=== PATIENT | male | born 1970 | race Caucasian/White ===

== ENCOUNTER 2022-05-29 17:49 | Inpatient (IN) ==
[2022-05-29] MEDS ORDERED: MIDAZOLAM HCL 1 MG/ML 2ML VIAL ONE (17:59)
[2022-05-29] MEDS ORDERED: fentaNYL citrate 100 MCG/2 ML VIAL ONE (17:59)
[2022-05-29] MEDS ORDERED: niCARdipine HCL INJ 2.5 MG/ML 10 ML AMP ONE (17:59)
[2022-05-29] MEDS ORDERED: HEPARIN (PORCINE) 1000 UNIT/ML 10 ML (CATH LAB USE ONLY) ONE (18:00)
[2022-05-29] MEDS ORDERED: TICAGRELOR 90 MG TAB ONE (18:01)
[2022-05-29] MEDS ORDERED: NITROGLYCERIN/D5W 100MCG/ML 20ML SYR ONE (18:03)
--- NOTE | 2022-05-29 18:10 | Emergency Department Note ---
Impression & Plan STEMI (ST elevation myocardial infarction), Chest pain ED Provider Note NAME: EMANUEL ARGUETA AGE: 51 SEX: M : 1970 ARRIVES VIA: Ambulance INFORMANT: Patient, EMS ED PROVIDER(S): Carlos Shrestha DO CHIEF COMPLAINT: Chest pain HPI: The patient is a 51-year-old male who presented to the emergency department for an evaluation of chest pain. The patient started having chest pain while he was doing a cardiac workout prior to arrival. He started noticing chest pain as well as numbness in both arms. He describes this as a tingling. The chest pain he described as a pressure. There was no back pain. He denies having any vomiting or shortness of breath. He is never had similar symptoms in the past. He does have a history of hypertension and a family history of coronary artery disease. He also uses tobacco products. He was noted to have an abnormal EKG prior to arrival. The EMS personnel called ahead to alert us about the abnormal EKG. The patient was treated with aspirin and fentanyl prior to arrival. He states his pain is significantly improved. ROS: See above HPI for pertinent positives & negatives. A total of 10 systems reviewed and were otherwise negative. PAST MEDICAL HISTORY: See Below PAST SURGICAL HISTORY: See Below FAMILY HISTORY: See Below SOCIAL HISTORY: See Below HOME MEDICATIONS: See Below ALLERGIES: See Below VITALS: See Below PHYSICAL EXAMINATION: GENERAL: Patient is awake alert in no acute distress patient is resting comfortably and showing no signs of anxiety EYES: The conjunctivae are clear. The pupils are round and reactive. EARS, NOSE, MOUTH AND THROAT: The nose is without any evidence of any deformity. NECK: The neck is nontender and supple. RESPIRATORY: Normal respiratory effort is noted there is no evidence of wheezing rhonchi or rales CARDIOVASCULAR: Regular rate and rhythm noted there no murmurs rubs or gallops normal S1 normal S2. GASTROINTESTINAL: The abdomen is soft. Abdomen is nontender. MUSCULOSKELETAL/EXTREMITIES: There is no evidence of gross deformity full range of motion is noted in the hips and shoulders. SKIN: There is no obvious evidence of any rash. Pulses are symmetric in both wrists. NEUROLOGIC: Patient is awake alert and oriented x3. MEDICAL DECISION MAKING: The patient is a 51-year-old male who presented to the emergency department for an evaluation of chest discomfort. The chest discomfort began with exertion. The patient called 911. The patient was treated with aspirin nitroglycerin and fentanyl prior to arrival. He was pain-free upon arrival but continued to have ST segment abnormalities consistent with an inferior posterior wall MN. The patient was made a heart alert prior to arrival. He was evaluated in the emergency department by the manager pest. After his evaluation he did request Brilinta be given. I discussed the patient's laboratory and EKG findings with him. He was aware that he was having an acute MN and was agreeable to evaluation by the manager pest for possible cardiac catheterization. The patient was agreeable. He was taken to the cardiac Prosthetics Technician. He remained stable in the emergency department. Triage Nursing notes reviewed. Prior medical records reviewed Vital Signs: reviewed and remarkable for no significant abnormalities Differential diagnosis: Cardiac ischemia, aortic dissection, pulmonary embolism, pneumothorax, pneumonia, pericarditis, myocarditis, esophageal rupture, GERD, cholecystitis, pancreatitis, musculoskeletal, as well as other pathologies. ER treatment provided: See below Diagnostics interpreted by me: ECG: EKG was obtained in the emergency department. My interpretation is normal sinus rhythm at 60 bpm. There is no ectopy. Inferior ST segment elevation was noted with high lateral and anterior reciprocal changes. No previous tracing was available. Tracing appears to be consistent with an inferior and posterior wall myocardial infarction. Prehospital EKG was reviewed. My interpretation is normal sinus rhythm at 62 bpm. There is no ectopy. High lateral ST depressions were noted with hyperacute T waves in the inferior leads. This is consistent with acute ischemia. Cardiac Monitoring: An order was placed for continuous cardiac monitoring. The monitor shows a rate of 63 bpm with sinus rhythm. Laboratory studies: As stated above and show below. Imaging studies: See below. Radiographic imaging was reviewed by myself Consultation(s): Heart alert was called prior to arrival. Dr. Foy arrived at the bedside. He asked for Brilinta to be given. ED COURSE: Procedures: none Critical Care: I have personally spent greater than 35 minutes of critical care time in the direct management of this patient. This includes bedside care, interpretation of diagnostic studies, and testing, discussion with consultants, patient, and family members, and other required patient management activities. This 35 minutes is in excess of all separately billable procedures. Past Med/Surg History Medical History Hypertension Seasonal allergies Surgical History No significant past surgical history Family History Mother Diabetes Dyslipidemia Heart disease Hypertension Aunt Heart disease Hypertension Social History Smoking Status: Current some day smoker Tobacco Type: Cigarettes Preferred Language: Kosovan marital status: current occupational status: employed Feels Safe at Home: Yes Allergies Allergies Allergy/AdvReac Type Severity Reaction Status Date / Time No Known Allergies Allergy Unverified 05/29/22 18:04 Home Meds Home Medications Medication Instructions Recorded Confirmed lisinopril 10 1 tab PO DAILY 05/29/22 05/29/22 mg-hydrochlorothiazide 12.5 mg tablet Results & Data (ED) Vital Signs Vital Signs - 24 hr 05/29/22 17:50 05/29/22 17:50 Temperature 36.3 C L Temperature Source Oral Pulse Rate 78 Pulse Rhythm Regular Pulse Strength Normal Respiratory Rate 18 Respiratory Effort / Characteristics Non-Labored Spontaneous Respiratory Depth Normal Respiratory Pattern Regular Blood Pressure 116/81 Blood Pressure Mean 92 Blood Pressure Position Lying Pulse Oximetry 96 95 Oxygen Delivery Method Room Air Room Air Sepsis Recent Fever Within 48 Hours No Sepsis New/Unexplained Change in Mental Status No Sepsis Action Taken by Nursing No Action Required Home Medications Current Medication List: was personally reviewed by me Laboratory Data Attestation: I reviewed the patient's lab results. 05/29/22 20:26 05/29/22 17:56 Lab Results 05/29/22 05/29/22 05/29/22 Range/Units 17:56 17:56 17:56 WBC 8.06 (4.8-10.8) K/ul RBC 4.08 L (4.63-6.08) M/uL Hgb 13.9 L (14.0-18.0) g/dl Hct 38.8 L (40.1-51.0) % MCV 95.1 (80.0-100.0) fL MCH 34.1 H (25.0-34.0) pg MCHC 35.8 (32.0-36.0) g/dL RDW Std Deviation 43.3 (36.4-46.3) fL RDW Coeff of Tree 12.4 (11.5-14.5) % Plt Count 249 (130-400) K/uL MPV 9.8 (9.4-12.4) fL Immature Gran % (Auto) 0.7 % Neut % (Auto) 50.3 % Lymph % (Auto) 37.1 % [place] % (Auto) 8.8 % Eos % (Auto) 2.6 % Baso % (Auto) 0.5 % Neut # (Auto) 4.05 (1.4-6.5) K/uL Lymph # (Auto) 2.99 (1.2-3.4) K/uL [place] # (Auto) 0.71 (0.24-0.82) K/uL Eos # (Auto) 0.21 (0-0.50) K/uL Baso # (Auto) 0.04 (0-0.2) K/uL Immature Gran # (Auto) 0.06 H (0.00-0.02) K/uL PT Cancelled INR Cancelled APTT Cancelled PTT Ratio Cancelled Activ Coag Time Kaolin (94-140) SECONDS Sodium 131 L (136-145) mmol/L Potassium 3.6 (3.5-5.1) mmol/L Chloride 96 L (98-107) mmol/L Carbon Dioxide 25 (21-32) mmol/L Anion Gap 10 (3-11) BUN 15 (6-23) mg/dl Creatinine 1.10 (0.6-1.4) mg/dl Est Cr Clr Drug Dosing 79.6 ml/min Est GFR ( Amer) 89.0 ml/min Est GFR (Non-Af Amer) 76.8 ml/min BUN/Creatinine Ratio 13.6 (10-20) Glucose 141 H (70-99(Fasting)) mg/dl Calcium 9.1 (8.5-10.1) mg/dl Total Bilirubin 0.6 (0.2-1.0) mg/dl AST 26 (13-39) U/L ALT 30 (7-52) U/L Alkaline Phosphatase 39 (34-104) U/L Troponin I High Sens 28.0 H (0-20) pg/ml Total Protein 6.8 (6.0-8.3) gm/dl Albumin 4.3 (3.4-5.0) gm/dl Globulin 2.5 (2.5-4.0) gm/dl Albumin/Globulin Ratio 1.7 (0.9-2) Lipase 13 (11-82) U/L 05/29/22 05/29/22 05/29/22 Range/Units 18:33 18:58 19:29 WBC (4.8-10.8) K/ul RBC (4.63-6.08) M/uL Hgb (14.0-18.0) g/dl Hct (40.1-51.0) % MCV (80.0-100.0) fL MCH (25.0-34.0) pg MCHC (32.0-36.0) g/dL RDW Std Deviation (36.4-46.3) fL RDW Coeff of Tree (11.5-14.5) % Plt Count (130-400) K/uL MPV (9.4-12.4) fL Immature Gran % (Auto) % Neut % (Auto) % Lymph % (Auto) % [place] % (Auto) % Eos % (Auto) % Baso % (Auto) % Neut # (Auto) (1.4-6.5) K/uL Lymph # (Auto) (1.2-3.4) K/uL [place] # (Auto) (0.24-0.82) K/uL Eos # (Auto) (0-0.50) K/uL Baso # (Auto) (0-0.2) K/uL Immature Gran # (Auto) (0.00-0.02) K/uL PT INR APTT PTT Ratio Activ Coag Time Kaolin 233 H 323 H 203 H (94-140) SECONDS Sodium (136-145) mmol/L Potassium (3.5-5.1) mmol/L Chloride (98-107) mmol/L Carbon Dioxide (21-32) mmol/L Anion Gap (3-11) BUN (6-23) mg/dl Creatinine (0.6-1.4) mg/dl Est Cr Clr Drug Dosing ml/min Est GFR ( Amer) ml/min Est GFR (Non-Af Amer) ml/min BUN/Creatinine Ratio (10-20) Glucose (70-99(Fasting)) mg/dl Calcium (8.5-10.1) mg/dl Total Bilirubin (0.2-1.0) mg/dl AST (13-39) U/L ALT (7-52) U/L Alkaline Phosphatase (34-104) U/L Troponin I High Sens (0-20) pg/ml Total Protein (6.0-8.3) gm/dl Albumin (3.4-5.0) gm/dl Globulin (2.5-4.0) gm/dl Albumin/Globulin Ratio (0.9-2) Lipase (11-82) U/L Administered Medications Atorvastatin Calcium (Atorvastatin 40 Mg Tab) 40 mg PO QAM [facility] Stop: 06/28/22 19:44 Last Admin: 05/29/22 21:08 Dose: 40 mg Documented By: BENNIE Sodium Chloride (Nss 1000ml) 1,000 mls @ 100 mls/hr IV .Q10H [facility] Stop: 06/28/22 19:44 Last Admin: 05/29/22 21:07 Dose: 100 mls/hr Documented By: BENNIE Metoprolol Tartrate (Metoprolol Tartrate 25 Mg Tab) 25 mg PO BID [facility] Stop: 06/28/22 20:59 Last Admin: 05/29/22 21:07 Dose: 25 mg Documented By: BENNIE Miscellaneous (Icu Protocol For Hyperglycemia) 1 each N/A ACHS [facility] Stop: 05/31/22 20:59 Last Admin: 05/29/22 21:46 Dose: 1 each Documented By: BENNIE Discontinued Medications Diphenhydramine HCl (Diphenhydramine 50 Mg/Ml Vial) Confirm Administered Dose 50 mg .ROUTE .STK-MED ONE Stop: 05/29/22 18:22 Last Admin: 05/29/22 21:08 Dose: Not Given Documented By: BENNIE Fentanyl Citrate (Fentanyl Citrate 100 Mcg/2 Ml Vial) Confirm Administered Dose 100 mcg .ROUTE .STK-MED ONE Stop: 05/29/22 18:00 Last Admin: 05/29/22 21:10 Dose: Not Given Documented By: BENNIE Heparin Sodium (Porcine) (Heparin (Porcine) 1000 Unit/Ml 10 Ml (Prosthetics Technician Use Only)) Confirm Administered Dose 10,000 units .ROUTE .STK-MED ONE Stop: 05/29/22 18:01 Last Admin: 05/29/22 21:09 Dose: Not Given Documented By: JT Heparin Sodium/Sodium Chloride (Heparin In Nss Infusion 1000 Unit/500 Ml (2 U/Ml) Bag) Confirm Administered Dose 3,000 units IV .Bringg-MED ONE Stop: 05/29/22 18:01 Last Admin: 05/29/22 21:09 Dose: Not Given Documented By: JT Midazolam HCl (Midazolam Hcl 1 Mg/Ml 2ml Vial) Confirm Administered Dose 2 mg .ROUTE .[employer] ONE Stop: 05/29/22 18:00 Last Admin: 05/29/22 21:09 Dose: Not Given Documented By: BENNIE Nicardipine HCl (Nicardipine Hcl Inj 2.5 Mg/Ml 10 Ml Amp) Confirm Administered Dose 25 mg .ROUTE .[employer] ONE Stop: 05/29/22 18:00 Last Admin: 05/29/22 21:09 Dose: Not Given Documented By: BENNIE Nitroglycerin/Dextrose (Nitroglycerin/D5w 100mcg/Ml 20ml Syr) Confirm A dministered Dose 2,000 mcg .ROUTE .[employer] ONE Stop: 05/29/22 18:04 Last Admin: 05/29/22 21:08 Dose: Not Given Documented By: BENNIE Ticagrelor (Ticagrelor 90 Mg Tab) Confirm Administered Dose 90 mg .ROUTE .[employer] ONE Stop: 05/29/22 18:02 Last Admin: 05/29/22 18:03 Dose: 90 mg Documented By: DOMINGA Discharge Plan Visit Data Chief Complaint: Heart Alert ED Provider: Carlos Shrestha Discharge Problem: STEMI (ST elevation myocardial infarction), Chest pain Patient Disposition: Admitted As Inpatient Discharge Instructions Interventions: ED Discharge Assessment Last Done: 05/29/22 20:51 : STEMI (ST elevation myocardial infarction) Qualifiers: Involved coronary artery: unspecified coronary artery Qualified Code(s): I21.3 - ST elevation (STEMI) myocardial infarction of unspecified site Chest pain Qualifiers: Chest pain type: chest pain due to myocardial ischemia Ischemic chest pain type: unspecified angina pectoris type Qualified Code(s): I25.9 - Chronic ischemic heart disease, unspecified
[2022-05-29 18:19] LABS: Basophils # (auto) 0.04 K/uL (0-0.2); Basophils % (auto) 0.5 %; Eosinophils # (auto) 0.21 K/uL (0-0.50); Eosinophils % (auto) 2.6 %; Hematocrit (blood only) 38.8 % (40.1-51.0); Hemoglobin 13.9 g/dl (14.0-18.0); Immature Granulocytes # (auto) 0.06 K/uL (0.00-0.02); Immature Granulocytes % (auto) 0.7 %; Lymphocytes # (auto) 2.99 K/uL (1.2-3.4); Lymphocytes % (auto) 37.1 %; Mean Corpuscular Hemoglobin 34.1 pg (25.0-34.0); Mean Corpuscular Hgb Conc 35.8 g/dL (32.0-36.0); Mean Corpuscular Volume 95.1 fL (80.0-100.0); Mean Platelet Volume 9.8 fL (9.4-12.4); Monocytes # (auto) 0.71 K/uL (0.24-0.82); Monocytes % (auto) 8.8 %; Neutrophils # (auto) 4.05 K/uL (1.4-6.5); Neutrophils % (auto) 50.3 %; Platelet Count 249 K/uL (130-400); RDW Coefficient of Variation 12.4 % (11.5-14.5); RDW Standard Deviation 43.3 fL (36.4-46.3); Red Blood Count 4.08 M/uL (4.63-6.08); White Blood Count 8.06 K/ul (4.8-10.8)
[2022-05-29] MEDS ORDERED: diphenhydrAMINE 50 MG/ML VIAL ONE (18:21)
[2022-05-29] MEDS ORDERED: ONDANSETRON INJ 2 MG/ML 2 ML VIAL IV PRN (19:39)
[2022-05-29] MEDS ORDERED: ATROPINE SULFATE 0.1 MG/ML 10ML SYR IV PRN (19:39)
[2022-05-29] MEDS ORDERED: NITROGLYCERIN SL 0.4 MG/TAB TAB SL PRN (19:39)
--- NOTE | 2022-05-29 19:53 | Pre Anesthesia Assessment ---
Date of Service May 29, 2022 Pre Sedation Assessment Vital Signs Temp Pulse Resp BP Pulse Ox O2 Del Method 05/29/22 17:50 95 Room Air 05/29/22 17:50 36.3 C L 78 18 116/81 96 Room Air Cardiovascular RRR, no murmur, no edema Respiratory normal respiratory effort, lungs clear to auscultation Pre-Sedation Airway Assessment Smoking Status: Current some day smoker Mallampati II ASA IV Notes The planned sedation has been discussed with the patient. Informed Consent was obtained. I have identified the patient, determined the appropriateness of sedation and have assessed the patient immediately prior to the procedure. All medicine(s) and interventions are by my order.
--- NOTE | 2022-05-29 19:55 | Post Anesthesia Assessment ---
Date of Service May 29, 2022 Post Sedation Assessment Vital Signs Temp Pulse Resp BP Pulse Ox O2 Del Method 05/29/22 17:50 95 Room Air 05/29/22 17:50 36.3 C L 78 18 116/81 96 Room Air Recovery Score Activity: Moves 4 extremities Respiration: Deep Breath/Cough Circulation: +/-20% PreAnes Value Consciousness: Fully Awake Oxygen Saturation: > 92% On Room Air Discharge Sedation Level of Care: Phase I Post Sedation Plan On clinical assessment, the patient appears to have tolerated the sedation without complications. Patient is recovering as anticipated. Patient will continue to be monitored by nursing and may be discharged when sedation discharge criteria are met per below protocol. Upon Completions of procedure up to 15 minutes continue every 5 minute vital signs and the P.A.R. score; then discharge to a Phase I or Fast Track to Phase II per the following guidelines: * Discharge Patient to appropriate Phase II area if PAR is 8 or greater or return to pre- procedure baseline. The post - procedure orders will be as directed. * If PAR score is less than 8 or not return to pre-procedure baseline then patient will follow Phase I monitoring till PAR is reached for Phase II. The Phase I may be done in procedure room or may call to secure a Phase I area. * If naloxone or flumazenil are used for reversal, hold in Phase I for continued monitoring from when last reversal dose was given for a minimum of 60 minutes or longer pending the nurse and/or physician discretion of patient condition before discharge to Phase II. Please call the Sedation Physician to re-evaluate and complete post-note for discharge to Phase II area. Do NOT discharge from procedure sedation or Phase 1 until post- sedation evaluation note is complete by procedure /sedation MD Sedation Discharge Instructions to be given to the patient at discharge to home. [facility] Procedure Codes (Charges) Indication for Procedure Indication for procedure: STEMI Sedation/Anesthesia Procedure 1: Sedation/Anesthesia: 62432 Mod Sedation by the same physician;Init15 Min Child Age 5 & Up (initial 15 min) Total Sedation Time (minutes): 71 Procedure 2: Sedation/Anesthesia: 77592 Mod Sedation by the same physician; Ea [id number] Minutes (additional 56 min) Total Sedation Time (minutes): 71
[2022-05-29 19:57] LABS: Albumin Level 4.3 gm/dl (3.4-5.0); Bilirubin,Total 0.6 mg/dl (0.2-1.0); Calcium 9.1 mg/dl (8.5-10.1); Potassium 3.6 mmol/L (3.5-5.1)
[2022-05-29 20:04] LABS: Albumin Globulin Ratio 1.7 (0.9-2); BUN Creatinine Ratio 13.6 (10-20); Creatinine Clr Calc Pharmacy 79.6 ml/min; Est GFR (Non-African American) 76.8 ml/min; Globulin 2.5 gm/dl (2.5-4.0); Total Protein 6.8 gm/dl (6.0-8.3)
--- NOTE | 2022-05-29 20:08 | Cardiac Catheterization ---
ACC Data: [facility] [employer] Cardiac Status Clinical evaluation leading to the procedure CAD Presenation: STEMI Anginal Classification: CCS IV Heart Failure: No Cardiogenic Shock within 24 Hours: No Cardiac Arrest within 24 Hours: No Imaging Studies Past 6 Months: No Stress Studies Past 6 Months: No STEMI OR Non-STEMI Symptom Onset Date: 05/29/22 Symptom Onset Time: 17:00 Thrombolytics: No Coronary Anatomy Dominant: Right Left Main (% Stenosis): Normal LAD (% Stenosis): Ostial (90%) and Mid (70%) D1 (% Stenosis): Ostial (99%) Circumflex (% Stenosis): Distal (100%) OM1 (% Stenosis): Normal (Mild diffuse) OM2 (% Stenosis): Proximal (70%) RCA (% Stenosis): Proximal (100%) Diagnostic Physicians Name: Ady Foy MD, PhD Closure Device Percutaneous Entry Location: Radial Closure Device: Radial Band Recommendations: Medical Therapy and/or Counseling and PCI without planned CABG PCI Indication: PCI for STEMI - Stable First Noted: First EKG Lesion Segment Name: Proximal to mid RCA Culprit Artery: Yes Stenosis Prior to Rx (%): 100% Chronic Total Occlusion: No Pre-Procedure JONH Flow: 0 Previously Treated Lesion: No Lesion Complexity: High/C Lesion Length (mm): 34 Thrombus Present: Yes Bifurcation Lesion: No Guidewire Across Lesion: Yes Intraprocedure Events Significant Disection: No Perforation: No Cardiac Cath Procedure Full Procedure Date May 29, 2022 Pre-Procedure Diagnosis Pre-Procedure Diagnosis: STEMI AUC Score AUC Score: 09 Post-Procedure Diagnosis Post-Procedure Diagnosis: Severe CAD Procedure(s) Performed Procedure(s) Performed: Coronary Angiography and Drug Eluting Stent Enterprise Business [employer] Ady Foy MD, PhD Estimated Blood Loss Estimated Blood Loss: 10 ml Medication(s) Medication(s): Diphenhydramine, Fentanyl, Heparin, Lidocaine 1%, Nicardipine, Nitroglycerin and Versed Summary of Findings Brief description: Patient was brought to the cardiac catheterization suite where he was shaved and prepped in a sterile fashion. Sedated using IV Versed, fentanyl, and Benadryl. Soft tissues of the right wrist were anesthetized using 2 mL of 1% Xylocaine. Right radial artery was accessed with modified Seldinger technique and a 6 Palestinian radial artery glide sheath was placed. Patient was provided anticoagulation with IV heparin and antispasmodics including nicardipine and nitroglycerin. All catheters were advanced and exchanged over a 0.035 J-tip wire. Patient arrived to the [facility] having already been loaded with 180 mg of Brilinta and 325 mg of aspirin. Left and right coronary angiography were performed in orthogonal views with a 5 [place] 4 diagnostic catheter Diagnostic catheters were removed. We next moved for intervention. ACT was checked and patient was provided additional heparin as needed throughout the procedure to maintain therapeutic ACT. A 6 Palestinian JR4 guide catheter was used to engage the right coronary. A CognioW versa guidewire was advanced and positioned distally in the RCA. Lesion was predilated multiple times with a 2.0 x 12 mm mini trek balloon up to 14 lencho. The most distal portion of the lesion was predilated using a 2.0 x 8 mm mini trek balloon secondary to curvature and calcification in that area. The diseased segment was again predilated this time using a 2.5 x 12 mm trek balloon up to nominal inflation multiple times. A guide liner was advanced over the guidewire and the 2.5 x 12 mm trek balloon was then able to be passed around the curved and calcified segment. The lesion was predilated. The balloon was then pulled back sequentially to predilate in the diseased segment multiple times at 14 lencho. The balloon was removed and angiography was performed. There was severe residual stenosis just prior to the curved segment which was refractory to the regular PTCA balloons. Therefore, a 2.5 x 12 mm NC balloon was advanced and positioned across that lesion. It was then dilated up to nominal pressure. The noncompliant balloon was removed. A 2.5 x 12 mm [place] drug-eluting stent was advanced with the help of the guide liner was delivered around the curved segment where it was then deployed at 14 lencho. The balloon was and it removed. A 2.5 x 26 mm [place] drug-eluting stent was then advanced over the guidewire and positioned with its distal edge within the proximal segment of the original stent and the stent then spanned the entire diseased segment of the proximal RCA. This was deployed initially at 14 lencho with a second inflation up to 18 lencho. Stent balloon was then removed. Coronary angiography was performed. A 3.5 x 15 mm noncompliant balloon was then advanced in the mid and proximal portion of the long stent was then postdilated to nominal pressure for a final diameter of 3.5 mm. The balloon was then deflated and removed. The guidewire and guide liner were next removed. Final angiographic evaluation was performed in orthogonal views. Guide catheter was removed. Radial sheath was then removed. Hemostasis was obtained using a TR band. Patient remained hemodynamically stable and asymptomatic. He was returned to the recovery area. Plan for admission to the ICU. This ended the case. Coronary angiography findings: LMT: Large-caliber vessel bifurcating into LAD and circumflex. Mild luminal irregularities. LAD: Large caliber vessel. Moderate to heavy calcification in the proximal to mid segment. There is an ostial 90% stenosis. Diffuse proximal disease with the mid having up to 70% stenosis. Distal vessel is smaller in caliber with diffuse mild disease as it reaches the apex. There is a large caliber first diagonal which has an ostial 99% stenosis and the vessel then branches and has mild disease. LCx: Large caliber and nondominant. Proximal segment with mild luminal irregularities. Mid segment is calcified and has mild luminal irregularities. After the second OM the AV groove vessel is 100% occluded. It fills the distal posterolateral branch and distal AV groove vessel via left to left collateralization. OM1 branch is medium with diffuse mild disease. The OM 2 branch is large with ostial to proximal 70% stenosis and then it branches distally. RCA: Large caliber and dominant. It is 100% occluded proximally. It is hazy in this occlusion appearing as thrombus and there is significant calcification and tortuosity throughout the proximal and mid vessel. JONH 0 flow is noted. PDA is a long and fills via left to right collateralization. PCI of RCA: There is 0% residual stenosis throughout the proximal and early mid vessel post PCI JONH-3 flow post PCI No evidence of dissection or perforation post PCI Beyond the distal edge of the mid RCA stent the mid and distal RCA have mild luminal irregularities. Then, just before the bifurcation into the PDA and posterior lateral branch there is a 80% stenosis. The mid PDA has a focal 50 to 70% stenosis but the vessel is relatively small. Summary: 1. Successful PCI of the RCA with implantation of 2 overlapping drug-eluting stents. 2. Severe multivessel coronary artery disease as described. 3. Patient will remain on dual antiplatelet therapy with aspirin and Brilinta 4. Initiate guideline directed medical therapy for secondary prevention of coronary disease including statin, beta-isabel, and HARDY inhibitor 5. We will consider future revascularization options given the severity of his multivessel coronary disease after he recovers from acute [place]. Hemodynamics Rest Ao:: 130/80 mmHg, mean 106 mmHg Final Ao: 149/81 mmHg, mean 111 mmHg LV: Not performed Recommendations Recommendations: Medical Therapy and/or Counseling and PCI without planned CABG Radiation Exposure (mGy) 3888 mGy, fluoroscopy time 19.1 minutes Contrast (mls) 160 mL Anesthesia 2 mg IV Versed, 50 mcg IV fentanyl, 25 mg IV Benadryl Procedural Complication(s) None I attest to the content of the Intraoperative Record and any orders documented therein. Any exceptions are noted below. [employer] Card Cath Procedure Codes Cardiac Catheterization Procedure 1: Cardiovascular Cath Procedures: 21332 Coronaries Moderate Sedation Procedure 1: Sedation/Anesthesia: 61781 Mod Sedation by the same physician;Init15 Min Child Age 5 & Up (Initial 15 minutes, total 71 minutes) Procedure 2: Sedation/Anesthesia: 47082 Mod Sedation by the same physician; Ea [id number] Minutes (Additional 56 minutes, total 71 minutes) Stenting Procedure 1: Cardiovascular Stent Procedures: 09197 Perc transluminal revascularization of acute sub/total occl, aMI (RCA) PG Care Time/CCT Total # of Minutes Spent Total Time Spent with Patient: Total time spent is greater than 50% in coordination of care (as documented) at patient's floor/unit and/or counseling patient:
--- NOTE | 2022-05-29 20:36 | Critical Care Consultation ---
Date of Consultation May 29, 2022 Assessment & Plan (1) STEMI (ST elevation myocardial infarction): (2) CAD (coronary artery disease): (3) S/P drug eluting coronary stent placement: (4) Smoker: Plan Reason Critically Ill: 51 YOM admitted for chest pain- found to be having STEMI and was taken directly to mobile home laborer for intervention. He received 2 JAZMYN to RCA and transitioned to ICU for following of symptoms and hemodynamics. Neuro - No acute needs, awake alert following sedation CAM ICU: Negative follow nuerological status Cardiac - STEMI, CAD, S/P Stenting to [place] arteries (RCA x2), HTN - Risk factors: HGBA1C- pending, lipid panel pending, Smoker- smoking cessation education, HTN - Patient post stents as above - continue to trend HScTNI - ECG improved following intervention - ECHO in morning - initiate BB, Statin, HARDY- already ordered per cards - Continue with ASA and Brilinta- already ordered per cards - Follow hemodynamics with imitation of HARDY and BB Respiratory - Every day smoker 1/2-3/4 pack per day - As above- cessation education and adjuncts as able GI - No acute needs - advance diet as tolerated RENAL/LYTES - Mild hyponatremia asymptomatic Replete intravascular volume- diet should correct - asymptomatic- likley related to not replacing volume/diet following working out this morning Follow renal function with initiation of HARDY Electrolytes per ICU protocol - No acute needs ENDO - Elevated random serum glucose without the diagnosis of diabetes - Lipid panel pending - HGBA1C pending - ICU hyperglycemic protocol goal <180mg/dl HEME - No acute needs ID - No acute needs LINES/IV ACCESS - PIV, TR Band Continue use of these lines DVT PROPHYLAXIS - SCDS, Asa, Brilinta, ambulation DISPO- ICU overnight I have personally spent 45 minutes of critical care time in the direct management of this patient. This is a life/limb threatening event. This includes time spent evaluating patient, direct bedside care, chart review, placing orders, interpretation of diagnostic studies, discussion with consultants, patient, and family members, as well as other required patient management activities. This time is exclusive of all separately billable procedures, and separate from and in addition to any other critical care service time. Thank you for allowing us to participate in the care of this patient. Please refer to my attending physician's documentation for any further recommendations. History of Present Illness Reason for Consultation: s/p PCI to RCA for STEMI Requesting Physician: Ady Garza MD Attending Physician: Bassam Nichole MD History of Present Illness 51 YOM [place] [facility] [place] of EMS for chest pain. Patient states he was doing a workout this morning and following jumping rope he noticed he was feeling "off". He then went upstairs, once upstairs he noted that he had onset of sternal chest pressure that was throbbing in nature and and 1-2/10. T his was associated with bilateral arm tingling down into his fingertips. He sat down and as this did not go away after 5 minutes he called 911. Patient arrived to [facility] and followig ECG and routine lab-work he was heart alerted and taken directly to the mobile home laborer. He received angioplasty following 2 JAZMYN to the RCA. He was loaded on Brilinta and asa and as needed heparin during the case for maintaining ACT levels. Patient arrived to the ICU awake alert, pain free and hemodynamically stable. The patient endorses family history of CAD, DMII, HTN. Mother and Aunts had [place] history. These occurred in their 70s. Mother this past year from complicatoins of heart failure and DMII and father was killed in his 40s in car accident. Patient has not had any other surgical procedures performed. He endorses that he works out at least 4-5 days per week with HIT workouts. He does endorse smoking 10-15 cigarrets per day, and social ETOH use. He reports no history of DTs when he does not drink. He does also endorse previous unfeeling well last week with head congestion, diarrhea, and myalgias that has resolved. Reports negative home COVID tests as negative. COVID test on arrival: NEGATIVE Allergies Allergy/AdvReac Type Severity Reaction Status Date / Time No Known Allergies Allergy Unverified 05/29/22 18:04 Home Medications Medication Instructions Recorded Confirmed Type lisinopril 10 1 tab PO DAILY 05/29/22 05/29/22 History mg-hydrochlorothiazide 12.5 mg tablet Patient History Medical History (Updated 05/29/22 @ 20:27 by VERA Graham) Hypertension Seasonal allergies Surgical History (Updated 05/29/22 @ 20:27 by VERA Graham) No significant past surgical history Family History (Updated 05/29/22 @ 20:23 by VERA Graham) Mother Diabetes Dyslipidemia Heart disease Hypertension Aunt Heart disease Hypertension Social History Smoking Status: Current some day smoker Tobacco Type: Cigarettes Preferred Language: Northern Irish marital status: current occupational status: employed Feels Safe at Home: Yes Review of Systems Review of Systems: REVIEW OF SYSTEMS: Constitutional: No fever, sweats or chills Eyes: No diplopia, no worsening or blurred vision ENT: (+) wears glasses, normal hearing, no trouble swallowing Respiratory: No cough, sputum, dyspnea at rest or on exertion Cardiovascular: (+)chest pain, tightness - currently resolved, denies palpitations Abdomen: No pain, nausea, vomiting, diarrhea or constipation Musculoskeletal: No joint pain, calf pain, swelling Neurologic: No weakness, numbness/tingling, or balance problems Psychiatric: No anxiety or depression Skin: No rash or itch Physical Exam Physical Exam: PHYSICAL EXAM: General: awake, alert, no apparent distress Head: Normocephalic, atraumatic ENT: PERRLA, EOMI, no pharyngeal exudate, mucous membranes dry Neuro: AAO x 3, speech clear and appropriate, strength intact bilaterally 5/5, sensation intact and equal all extremities and dermatomes, no pronator drift Chest: equal rise and fall of the chest, no accessory muscle use, no heaves or thirlls, Clear to auscultation, on room air, Cardiac: Regular rate and rhythm, telemetry reviewed- NSR, skin warm dry, cap refill <3 seconds, peripheral pusles +2 no JVD, no murmur, no edema, right radial TR band in place- sensation intact fingers and hand GI: NABS x 4 quadrants, soft, nontender to palpation, no rebound, guarding or tenderness : Spontaneously voiding, no pain, no CVA tenderness, Extremities: Normal inspection, no peripheral edema or erythema, calfs no ntender to palpation Psych: Normal mood and affect Skin: no rash or erythema Results & Data Results & Data ([facility]) Vital Signs (Past 12 Hours) Vital Signs Temp Pulse Resp BP Pulse Ox O2 Del Method 05/29/22 17:50 95 Room Air 05/29/22 17:50 36.3 C L 78 18 116/81 96 Room Air Laboratory Results Abnormal lab results 05/29/22 05/29/22 05/29/22 Range/Units 17:56 17:56 18:33 RBC 4.08 L (4.63-6.08) M/uL Hgb 13.9 L (14.0-18.0) g/dl Hct 38.8 L (40.1-51.0) % MCH 34.1 H (25.0-34.0) pg Immature Gran # (Auto) 0.06 H (0.00-0.02) K/uL Activ Coag Time Kaolin 233 H (94-140) SECONDS Sodium 131 L (136-145) mmol/L Chloride 96 L (98-107) mmol/L Glucose 141 H (70-99(Fasting)) mg/dl 05/29/22 05/29/22 Range/Units 18:58 19:29 RBC (4.63-6.08) M/uL Hgb (14.0-18.0) g/dl Hct (40.1-51.0) % MCH (25.0-34.0) pg Immature Gran # (Auto) (0.00-0.02) K/uL Activ Coag Time Kaolin 323 H 203 H (94-140) SECONDS Sodium (136-145) mmol/L Chloride (98-107) mmol/L Glucose (70-99(Fasting)) mg/dl Medications Administered Home Medications lisinopril 10 mg-hydrochlorothiazide 12.5 mg tablet 1 tab PO DAILY 05/29/22 [History Confirmed 05/29/22] Active Medications Aspirin (Aspirin 81 Mg Ectab) [facility] [place]: 06/29/22 08:59 Atorvastatin Calcium (Atorvastatin 40 Mg Tab) 40 mg [facility] Stop: 06/28/22 19:44 Atropine Sulfate (Atropine Sulfate 0.1 Mg/Ml 10ml Syr) 0.5 mg IV UD PRN PRN Reason: bradycardia/hypotension Stop: 06/28/22 19:38 Sodium Chloride (Nss 1000ml) 1,000 mls @ 100 mls/hr IV .Q10H DAWIT Stop: 06/28/22 19:44 Lisinopril (Lisinopril 10 Mg Tab) 10 mg [facility] Stop: 06/29/22 08:59 Metoprolol Tartrate (Metoprolol Tartrate 25 Mg Tab) 25 mg PO BID [facility] Stop: 06/28/22 20:59 Miscellaneous (Icu Protocol For Hyperglycemia) 1 each N/A ACHS [facility] Stop: 05/31/22 20:59 Nitroglycerin (Nitroglycerin Sl 0.4 Mg/Tab Tab) 0.4 mg SL UD PRN PRN Reason: Chest Pain Stop: 06/28/22 19:38 Ondansetron HCl (Ondansetron Inj 2 Mg/Ml 2 Ml Vial) 4 mg IV Q6H PRN PRN Reason: Nausea And Vomiting Stop: 06/28/22 19:38 Ticagrelor (Ticagrelor 90 Mg Tab) 90 mg PO BID [facility] Stop: 06/29/22 08:59 ECG Additional Comments: 1954: NSR, ND 170 MS, QRS 104, QTc 398- resolved ST elevations 29-MAY-2022 17:51:10 Normal sinus rhythm Inferior infarct , possibly acute ACUTE [place] / STEMI Consider right ventricular involvement in acute inferior infarct Abnormal ECG No previous ECGs available Coding Level of Care Code Critical Care 1st 30-74 mins Diagnoses STEMI (ST elevation myocardial infarction) I21.3 CAD (coronary artery disease) I25.10 S/P drug eluting coronary stent placement Z95.5 Smoker F17.200
[2022-05-29 20:37] LABS: Basophils # (auto) 0.03 K/uL (0-0.2); Basophils % (auto) 0.3 %; Eosinophils # (auto) 0.07 K/uL (0-0.50); Eosinophils % (auto) 0.7 %; Hematocrit (blood only) 38.9 % (40.1-51.0); Hemoglobin 14.2 g/dl (14.0-18.0); Immature Granulocytes # (auto) 0.06 K/uL (0.00-0.02); Immature Granulocytes % (auto) 0.6 %; Lymphocytes # (auto) 1.62 K/uL (1.2-3.4); Lymphocytes % (auto) 15.1 %; Mean Corpuscular Hemoglobin 34.3 pg (25.0-34.0); Mean Corpuscular Hgb Conc 36.5 g/dL (32.0-36.0); Mean Platelet Volume 9.8 fL (9.4-12.4); Monocytes # (auto) 0.55 K/uL (0.24-0.82); Monocytes % (auto) 5.1 %; Neutrophils # (auto) 8.43 K/uL (1.4-6.5); Neutrophils % (auto) 78.2 %; Platelet Count 215 K/uL (130-400); RDW Coefficient of Variation 12.3 % (11.5-14.5); RDW Standard Deviation 42.5 fL (36.4-46.3); Red Blood Count 4.14 M/uL (4.63-6.08); White Blood Count 10.76 K/ul (4.8-10.8)
--- NOTE | 2022-05-29 20:50 | Cardiology Consultation ---
Date of Consultation May 29, 2022 Assessment & Plan (1) STEMI (ST elevation myocardial infarction): Patient underwent emergent PCI to the RCA with implantation of 2 overlapping drug-eluting stents. He has good post PCI angiographic results and return of JONH-3 flow in the occluded vessel. He has severe multivessel coronary disease residually on the left coronary system. He will remain on dual antiplatelet therapy for at least 1 to 2 years. Currently aspirin 81 mg daily and Brilinta 90 mg p.o. twice daily. He was already on lisinopril which will continue. In addition, guideline directed medical therapy will include beta-isabel and high intensity statin therapy. He should have an echocardiogram to evaluate his EF post TX. This will have significant implications for additional treatment if necessary. Complete revascularization will be considered at a later date and include the possibility of coronary artery bypass grafting versus staged multivessel PCI. (2) Hypertension: Patient will remain on lisinopril. Adding metoprolol tartrate 25 mg p.o. twice daily. We will see how he does with these medications and titrate as necessary to achieve target systolic blood pressure. (3) Atherogenic dyslipidemia: Patient is considered high risk. He will be on high intensity statin therapy. We initiated a atorvastatin 40 mg daily. A fasting lipid panel has been ordered and under current guidelines are target LDL reduction will be greater than or equal to 50% of untreated baseline LDL. (4) Smoker: Tobacco cessation counseling. Additionally, pharmacologic help with Wellbutrin and/or NicoDerm patches. Plan Given acute TX patient will remain hospitalized in the ICU for 24 hours. Assuming no complications he will be ready for stepdown at that point and his to raheem hospitalization time will be 48-72 hours. History of Present Illness Reason for Consultation: Acute ST elevation TX Attending Physician: Bassam Nichole MD History of Present Illness 51-year-old hypertensive male smoker without cardiac history was exercising at home and developed sudden onset severe chest pain. He has a strong family history of coronary disease and decided to seek medical attention. EMS was pita led and he was provided aspirin and fentanyl in route. EKG demonstrated inferior ST elevations. A heart alert was called and on my arrival he continued with improved but ongoing chest discomfort. His EKG continued to demonstrate inferior ST elevations. After obtaining informed consent the patient was taken emergently to the cardiac catheterization suite where he underwent diagnostic coronary angiography followed by PCI with implantation of 2 overlapped drug- eluting stents in the RCA. This resulted in resolution of his EKG changes and chest discomfort. He was hemodynamically stable and is now admitted to the intensive care unit for further work-up and management. Patient denies anginal symptoms preceding today's event. He exercises regularly and had no problems prior to today. He does smoke but this has not impaired him significantly. He denies any shortness of breath, syncope, near syncope, orthopnea, PND, racing heartbeat, palpitations, or edema. He states his mother had multivessel coronary disease and a coronary artery bypass grafting operation. Allergies Allergy/AdvReac Type Severity Reaction Status Date / Time No Known Allergies Allergy Unverified 05/29/22 18:04 Home Medications Medication Instructions Recorded Confirmed Type lisinopril 10 1 tab PO DAILY 05/29/22 05/29/22 History mg-hydrochlorothiazide 12.5 mg tablet Patient History Medical History Hypertension Seasonal allergies Surgical History No significant past surgical history Family History Mother Diabetes Dyslipidemia Heart disease Hypertension Aunt Heart disease Hypertension Social History Smoking Status: Current some day smoker Tobacco Type: Cigarettes Preferred Language: Belarusian marital status: current occupational status: employed Feels Safe at Home: Yes Review of Systems Review of Systems: Negative x12 point review except as per HPI Physical Exam Constitutional: WD/WN, vitals as above Eyes: Sclera are anicteric. Extraocular muscles are intact. ENMT: Oral mucosa is pink, moist, and intact. Neck: No JVD or thyromegaly Respiratory: Clear to auscultation bilaterally. No wheezing, rhonchi, or rales. Cardiovascular: Regular rate and rhythm. S4 gallop. No rubs or murmurs appreciated. No edema. Pulses are 2+ and symmetric. Gastrointestinal (Abdomen): Normal active bowel sounds. Musculoskeletal: no cyanosis or clubbing, extremities motor strength 5/5 Neurologic: Cognition is intact. Speech is fluent. No focal deficits. No tremor. Psychiatric: A+Ox3, euthymic affect Results & Data ([facility]) Vital Signs (Past 12 Hours) Vital Signs Temp Pulse Resp BP Pulse Ox O2 Del Method 05/29/22 17:50 95 Room Air 05/29/22 17:50 36.3 C L 78 18 116/81 96 Room Air PG Care Time/CCT Total # of Minutes Spent Total Time Spent with Patient: Total time spent is greater than 50% in coordination of care (as documented) at patient's floor/unit and/or counseling patient: Critical Care Time: Yes Total Critical Care Time: 60 A total of 60 minutes critical care time was spent in the initial evaluation, examination, discussion of initial plan of care, formulation and implementation of a plan of care, and documentation of all of the above. This is exclusive of the time spent for his procedure. Coding Level of Care Code New Pt INP/OBS CONSULT LVL 4, 60 MIN Patient Type New Diagnoses STEMI (ST elevation myocardial infarction) I21.3 Hypertension I10 Atherogenic dyslipidemia E78.5 Smoker F17.200 Additional Codes Critical Care Time - Critical Care Time: Yes ([id number])
--- NOTE | 2022-05-29 21:01 | Hospitalist Consultation ---
Date of Consultation May 29, 2022 Assessment & Plan (1) STEMI (ST elevation myocardial infarction): -Patient currently stable in the ICU -Patient is S/P 2 JAZMYN to the RCA, also was noted to have significant atherosclerotic disease in the left coronary system -Continue to monitor on tele and pulse oximetry -Continue medical management as ordered by cardiology including HARDY, meta isabel, high intensity statin, aspirin, and Brilinta -Patient to receive TTE in the am for further assessment -Continue to stress smoking cessation, patient declined nicotine patch and gum at this time -Monitor trop q6h with repeat currently in process -AM CBC and BMP, follow up on A1C and lipid panel which are in process (2) Hypertension: -Stable -Continue HARDY and start metoprolol as ordered by cardiology -Hold HCTZ for now with his hyponatremia and recent cath, monitor am electrolytes and renal function (3) Hyponatremia: -Sodium noted to be 131 on initial labs obtained in the ED -Glucose noted to be 141 at that time -patient is asymptomatic, mild hyponatremia likely multifactorial including diuretic use, exercising prior to ED arrival and last meal being prior to arrival to the ED -Can start a heart healthy diet, Hold diuretics for now and monitor am renal function and electrolytes (4) Smoker: -Continue to stress smoking cessation -Patient declined nicotine patch at the time fo the consult Plan The patient was seen with and discussed with Dr. Esteves at the time of the consult History of Present Illness Reason for Consultation: Post-procedure medical management Requesting Physician: Dr. Ady Foy Attending Physician: Dr. Isabela Esteves History of Present Illness Holden is a 51 year old male with a PMH significant for HTN and current smoker who was brought to the ED this evening by EMS as a heart alert and taken directly to the lab associate. Per the procedural documentation the patient was found to be having STEMI. He received 2 JAZMYN to RCA and transitioned to ICU for following of symptoms and hemodynamics. At the time of the exam the patient was resting comfortably in bed in no acute distress after his procedure. He states that he is still smoking approximately 1/2-3/4 PPD and drinks beer socially. He states that his PCP follows yearly blood work to monitor for DM and high cholesterol and his labs have been stable. This morning he was doing a jump rope workout, he stated to feel "off" shortly after completing the workout. When questioned further he described a heaviness in the substernal region of his chest. He also noted BL upper extremity numbness/tingling. He clarified that the pain did not radiate from his chest to his BL UE's. He did take his Lisinopril/HCTZ this am. He states that he feels much better after the procedure, he does have some anxiety due to having to rest for a few days as he has been very busy with work. He denies current fever, chills, chest pain, SOB, abdominal pain, nausea, vomiting, diarrhea, dysuria, hematuria, and recent trauma. Since arriving to the ICU post-cath the patient has been afebrile, hemodynamically stable, and stable on RA. His initial labs were remarkable for A CBC WNL, stable Cr at 1.1, sodium of 131, otherwise stable electrolytes, glucose of 141, initial high sensitivity trop of 28, and covid negative. Please refer to Dr. Esteves's attestation for any changes to the treatment plan Allergies Allergy/AdvReac Type Severity Reaction Status Date / Time No Known Allergies Allergy Unverified 05/29/22 18:04 Home Medications Medication Instructions Recorded Confirmed Type lisinopril 10 1 tab PO DAILY 05/29/22 05/29/22 History mg-hydrochlorothiazide 12.5 mg tablet Patient History Medical History Hypertension Seasonal allergies Surgical History No significant past surgical history Family History Mother Diabetes Dyslipidemia Heart disease Hypertension Aunt Heart disease Hypertension Social History Smoking Status: Current every day smoker Tobacco Type: Cigarettes Second Hand Exposure: No; Do You Dip or Chew Tobacco: No; Tobacco Cessation Education Requested by Patient: Yes Hx Alcohol Use: Yes Alcohol type: beer Hx Substance Use: No Preferred Language: Romansh Communication Ability: Effective Mold Maker Required: No Beliefs That Will Affect Care: None marital status: Current Living Situation: Alone current occupational status: employed Other Information That Helps Us Care for You: No Feels Safe at Home: Yes Safety Concerns: Feels Safe At This Time Assistive Devices: None Review of Systems Review of Systems: Denies current fever, chills, headache, changes in vision, hearing, taste, and smell, chest pain, SOB, cough, abdominal pain, nausea, vomiting, diarrhea, hematemesis, melena, dysuria, hematuria, and recent falls. All systems have been reviewed and are otherwise negative. Physical Exam Physical Exam: Physical Exam: General: In no acute distress, stated age, well-nourished, good hygiene HEENT: Normocephalic, atraumatic, no scleral icterus, pupils around round, symmetrical, and reactive to light, moist mucus membranes, trachea midline, no thyromegaly Chest/Pulm: No respiratory distress, symmetrical chest expansion, clear breath sounds throughout Cardiac: RRR, no murmurs noted Abdomen: Negative for ascites and bruising, normoactive bowel sounds, soft, non-tender to palpation throughout Musculoskeletal: Patient with radial band in place, no signs of bleeding at the procedural insertion site, patient with intact sensation, motor function, and cap refill in the BL hands, ROM intact in the BL LE's Extremities: Radial, dorsalis pedis, and posterior tibial pulses are intact and symmetrical, no edema noted in the BL LE's Skin: Warm, dry, no rashes , lesions, or scars noted Neuro: Alert and oriented to person, place, month, year, and president, no focal defects, Psych: No acute distress, calm and cooperative during the exam Results & Data Results & Data ([facility]) Vital Signs (Past 12 Hours) Vital Signs Temp Pulse Resp BP Pulse Ox O2 Del Method 05/29/22 17:50 95 Room Air 05/29/22 17:50 36.3 C L 78 18 116/81 96 Room Air Laboratory Results Abnormal lab results 05/29/22 05/29/22 05/29/22 Range/Units 17:56 17:56 18:33 RBC 4.08 L (4.63-6.08) M/uL Hgb 13.9 L (14.0-18.0) g/dl Hct 38.8 L (40.1-51.0) % MCH 34.1 H (25.0-34.0) pg MCHC (32.0-36.0) g/dL Neut # (Auto) (1.4-6.5) K/uL Immature Gran # (Auto) 0.06 H (0.00-0.02) K/uL Activ Coag Time Kaolin 233 H (94-140) SECONDS Sodium 131 L (136-145) mmol/L Chloride 96 L (98-107) mmol/L Glucose 141 H (70-99(Fasting)) mg/dl Troponin I High Sens 28.0 H (0-20) pg/ml 05/29/22 05/29/22 05/29/22 Range/Units 18:58 19:29 20:26 RBC 4.14 L (4.63-6.08) M/uL Hgb (14.0-18.0) g/dl Hct 38.9 L (40.1-51.0) % MCH 34.3 H (25.0-34.0) pg MCHC 36.5 H (32.0-36.0) g/dL Neut # (Auto) 8.43 H (1.4-6.5) K/uL Immature Gran # (Auto) 0.06 H (0.00-0.02) K/uL Activ Coag Time Kaolin 323 H 203 H (94-140) SECONDS Sodium (136-145) mmol/L Chloride (98-107) mmol/L Glucose (70-99(Fasting)) mg/dl Troponin I High Sens (0-20) pg/ml ECG Additional Comments: Poor data quality, interpretation may be adversely affected Normal sinus rhythm Inferior infarct , possibly acute ACUTE [place] / STEMI Consider right ventricular involvement in acute inferior infarct Abnormal ECG No previous ECGs available PG Care Time/CCT Total # of Minutes Spent Total Time Spent with Patient: Total time spent is greater than 50% in coordination of care (as documented) at patient's floor/unit and/or counseling patient: Coding Patient Type Established Diagnoses STEMI (ST elevation myocardial infarction) I21.3 Hypertension I10 Hyponatremia E87.1 Smoker F17.200
[2022-05-29 21:07] LABS: INR 1.1 (0.9-1.1); Partial Thromboplastin Ratio 3.7; Prothrombin Time 11.6 Seconds (9.0-12.0)
[2022-05-29] MEDS: METOPROLOL TARTRATE 25 MG TAB PO SCH (21:07)
[2022-05-29] MEDS: SODIUM CHLORIDE 0.9% 1000ML 1,000 ML IV SCH (21:07)
[2022-05-29] MEDS: ATORVASTATIN 40 MG TAB PO SCH (21:08)
[2022-05-29 21:13] LABS: Partial Thromboplastin Time 101.5 Seconds (21.0-31.0)
[2022-05-29 21:22] LABS: Chol HDL Ratio 4.9 (0-5)
[2022-05-29] MEDS: ICU Protocol for HYPERglycemia SCH (21:46)
[2022-05-30 05:44] LABS: Basophils # (auto) 0.03 K/uL (0-0.2); Basophils % (auto) 0.4 %; Eosinophils # (auto) 0.14 K/uL (0-0.50); Eosinophils % (auto) 1.8 %; Hematocrit (blood only) 38.5 % (40.1-51.0); Hemoglobin 13.9 g/dl (14.0-18.0); Immature Granulocytes # (auto) 0.06 K/uL (0.00-0.02); Immature Granulocytes % (auto) 0.8 %; Lymphocytes # (auto) 2.14 K/uL (1.2-3.4); Mean Corpuscular Hemoglobin 34.3 pg (25.0-34.0); Mean Corpuscular Hgb Conc 36.1 g/dL (32.0-36.0); Mean Corpuscular Volume 95.1 fL (80.0-100.0); Monocytes # (auto) 0.73 K/uL (0.24-0.82); Monocytes % (auto) 9.2 %; Neutrophils # (auto) 4.83 K/uL (1.4-6.5); Neutrophils % (auto) 60.8 %; Platelet Count 217 K/uL (130-400); RDW Coefficient of Variation 12.4 % (11.5-14.5); RDW Standard Deviation 43.3 fL (36.4-46.3); Red Blood Count 4.05 M/uL (4.63-6.08); White Blood Count 7.93 K/ul (4.8-10.8)
[2022-05-30 05:53] LABS: Calcium 8.6 mg/dl (8.5-10.1); Potassium 3.6 mmol/L (3.5-5.1)
[2022-05-30 05:59] LABS: BUN Creatinine Ratio 14.1 (10-20); Creatinine Clr Calc Pharmacy 84.8 ml/min; Est GFR (African American) 110.4 ml/min; Est GFR (Non-African American) 95.3 ml/min
--- NOTE | 2022-05-30 07:06 | History & Physical Report ---
Date of Service May 29, 2022 Assessment & Plan (1) STEMI (ST elevation myocardial infarction): Plan: (1) STEMI (ST elevation myocardial infarction): -Patient currently stable in the ICU -Patient is S/P 2 JAZMYN to the RCA, also was noted to have significant atheroscl erotic disease in the left coronary system -Continue to monitor on tele and pulse oximetry -Continue medical management as ordered by cardiology including HARDY, meta isabel, high intensity statin, aspirin, and Brilinta -Patient to receive TTE in the am for further assessment -Continue to stress smoking cessation, patient declined nicotine patch and gum at this time -Monitor trop q6h with repeat currently in process -AM CBC and BMP, follow up on A1C and lipid panel which are in process (2) Hypertension: Plan: (2) Hypertension: -Stable -Continue HARDY and start metoprolol as ordered by cardiology -Hold HCTZ for now with his hyponatremia and recent cath, monitor am electrolytes and renal function (3) Hyponatremia: Plan: (3) Hyponatremia: -Sodium noted to be 131 on initial labs obtained in the ED -Glucose noted to be 141 at that time -patient is asymptomatic, mild hyponatremia likely multifactorial including diuretic use, exercising prior to ED arrival and last meal being prior to arrival to the ED -Can start a heart healthy diet, Hold diuretics for now and monitor am renal function and electrolytes (4) Smoker: Plan: (4) Smoker: -Continue to stress smoking cessation -Patient declined nicotine patch at the time fo the consult Admission and Anticipated Discharge Date Admission Date: May 29, 2022 History of Present Illness Chief Complaint: STEMI Primary Care Provider: NO PCP Holden is a 51 year old male with a PMH significant for HTN and current smoker who was brought to the ED this evening by EMS as a heart alert and taken directly to the lab support tech. Per the procedural documentation the patient was found to be having STEMI. He received 2 JAZMYN to RCA and transitioned to ICU for following of symptoms and hemodynamics. At the time of the exam the patient was resting comfortably in bed in no acute distress after his procedure. He states that he is still smoking approximately 1/2-3/4 PPD and drinks beer socially. He states that his PCP follows yearly blood work to monitor for DM and high cholesterol and his labs have been stable. This morning he was doing a jump rope workout, he stated to feel "off" shortly after completing the workout. When questioned further he described a heaviness in the substernal region of his chest. He also noted BL upper extremity numbness/tingling. He clarified that the pain did not radiate from his chest to his BL UE's. He did take his Lisinopril/HCTZ this am. He states that he feels much better after the procedure, he does have some anxiety due to having to rest for a few days as he has been very busy with work. He denies current fever, chills, chest pain, SOB, abdominal pain, nausea, vomiting, diarrhea, dysuria, hematuria, and recent trauma. Since arriving to the ICU post-cath the patient has been afebrile, hemodynamically stable, and stable on RA. His initial labs were remarkable for A CBC WNL, stable Cr at 1.1, sodium of 131, otherwise stable electrolytes, glucose of 141, initial high sensitivity trop of 28, and covid negative. Please refer to Dr. Esteves's attestation for any changes to the treatment plan Allergies Allergies Allergy/AdvReac Type Severity Reaction Status Date / Time No Known Allergies Allergy Unverified 05/29/22 18:04 Home Medications Medication Instructions Recorded Confirmed Type lisinopril 10 1 tab PO DAILY 05/29/22 05/29/22 History mg-hydrochlorothiazide 12.5 mg tablet Past Med/Surg History Medical History Hypertension Seasonal allergies Surgical History No significant past surgical history Family History Mother Diabetes Dyslipidemia Heart disease Hypertension Aunt Heart disease Hypertension Social History Smoking Status: Current every day smoker Tobacco Type: Cigarettes Second Hand Exposure: No; Do You Dip or Chew Tobacco: No; Tobacco Cessation Education Requested by Patient: Yes Hx Alcohol Use: Yes Alcohol type: beer Hx Substance Use: No Preferred Language: Syriac Communication Ability: Effective Figurine Maker Required: No Beliefs That Will Affect Care: None marital status: Current Living Situation: Alone current occupational status: employed Other Information That Helps Us Care for You: No Feels Safe at Home: Yes Safety Concerns: Feels Safe At This Time Assistive Devices: None Review of Systems Review of Systems: Review of Systems: Denies current fev er, chills, headac he, changes in vis ion, hearing, tast e, and smell, ches t pain, SOB, cough , abdominal pain, nausea, vomiting, diarrhea, hemateme sis, melena, dysur ia, hematuria, and recent falls. All systems have been reviewed and are otherwise negative . Physical Exam Physical Exam: Physical Exam: General:In no acu te distress, state d age, well-nouris hed, good hygiene HEENT:Normocephal ic, atraumatic, no scleral icterus, pupils around roun d, symmetrical, an d reactive to ligh t, moist mucus mem branes, trachea mi dline, no thyromeg deangelo Chest/Pu lm:No respiratory distress, symmetr ical chest expansi on, clear breath s ounds throughout Cardiac:RRR, no m urmurs noted Abdomen:Negative for ascites and br uising, normoactiv e bowel sounds, so ft, non-tender to palpation througho ut Musculosk eletal: Patientwi th radial band in place, no signs of bleeding at the p rocedural insertio n site, patient wi th intact sensatio n, motor function, and cap refill in the BL hands, ROM intact in the BL LE's Extremi ties:Radial, dors jameson pedis, and po sterior tibial pul ses are intact and symmetrical, no e oscar noted in the BL LE's Skin :Warm, dry, no ra shes , lesions, or scars noted Neuro:Alert and o riented to person, place, month, seth carbajal, and president, no focal defects, Psych:No acute di stress, calm and c ooperative during the exam Results & Data Results & Data ([facility]) Vital Signs (Past 12 Hours) Vital Signs Temp Pulse Resp BP Pulse Ox 05/30/22 06:00 58 L 17 94 05/30/22 06:00 98/65 L 05/30/22 05:30 52 L 17 05/30/22 05:30 121/71 05/30/22 05:15 53 L 20 95 05/30/22 05:15 121/71 05/30/22 06:00 36.9 C 05/30/22 05:00 49 L 18 05/30/22 04:45 54 L 20 96 05/30/22 04:45 117/68 05/30/22 04:31 55 L 17 97 05/30/22 04:31 113/63 05/30/22 04:30 54 L 18 05/30/22 04:15 60 19 97 05/30/22 04:15 124/74 05/30/22 04:00 56 L 17 95 05/30/22 04:00 103/62 05/30/22 03:45 59 L 15 96 05/30/22 03:45 135/72 05/30/22 03:30 55 L 18 97 05/30/22 03:15 66 14 97 05/30/22 03:00 70 19 96 05/30/22 03:00 114/63 05/30/22 02:45 64 21 05/30/22 02:45 119/74 05/30/22 02:30 59 L 16 97 05/30/22 02:30 130/78 05/30/22 02:15 54 L 13 93 05/30/22 02:15 118/66 05/30/22 02:00 56 L 16 95 05/30/22 02:00 138/68 05/30/22 01:45 54 L 17 98 05/30/22 01:45 108/89 05/30/22 01:30 55 L 18 95 05/30/22 01:30 117/70 05/30/22 01:15 55 L 18 97 05/30/22 01:00 68 18 05/30/22 01:00 121/71 05/30/22 00:45 57 L 21 96 05/30/22 00:45 118/70 05/30/22 05:00 36.7 C 05/30/22 04:00 36.7 C 05/30/22 03:00 36.8 C 05/30/22 02:00 36.7 C 05/30/22 01:24 36.8 C 05/30/22 01:00 36.8 C 05/30/22 00:30 61 19 96 05/30/22 00:30 114/64 05/30/22 00:15 73 22 97 05/30/22 00:15 120/66 05/30/22 00:00 61 20 97 05/30/22 00:00 116/70 05/29/22 23:45 64 20 96 05/29/22 23:45 119/62 05/29/22 23:30 61 21 93 05/29/22 23:15 67 20 97 05/29/22 23:00 62 21 97 05/29/22 23:00 119/73 05/29/22 22:45 65 20 97 05/29/22 22:45 124/80 05/29/22 22:30 63 21 96 05/29/22 22:30 136/81 05/29/22 22:15 70 18 97 05/29/22 22:15 111/79 05/29/22 22:00 60 14 100 05/29/22 22:00 113/92 05/29/22 21:45 64 21 100 05/30/22 00:24 36.6 C 05/30/22 00:00 36.8 C 05/30/22 00:00 61 05/29/22 20:20 62 05/29/22 23:00 36.8 C 05/29/22 22:00 36.8 C 05/29/22 23:24 36.8 C 05/29/22 22:24 36.8 C 05/29/22 21:30 63 19 98 05/29/22 21:30 137/85 05/29/22 21:15 68 19 97 05/29/22 21:15 125/84 05/29/22 21:00 76 27 H 99 05/29/22 21:00 124/82 05/29/22 20:46 131/67 05/29/22 20:46 67 23 95 05/29/22 20:45 68 25 H 97 05/29/22 20:30 70 22 99 05/29/22 20:16 78 17 98 05/29/22 20:16 121/70 05/29/22 20:15 76 20 95 05/29/22 20:00 71 24 97 05/29/22 21:00 36.6 C 05/29/22 21:24 36.5 C 05/29/22 20:54 36.4 C L Laboratory Results Laboratory Results WBC 7.93 K/ul (4.8-10.8) 05/30/22 04:08 RBC 4.05 M/uL (4.63-6.08) L 05/30/22 04:08 Hgb 13.9 g/dl (14.0-18.0) L 05/30/22 04:08 Hct 38.5 % (40.1-51.0) L 05/30/22 04:08 MCV 95.1 fL (80.0-100.0) 05/30/22 04:08 MCH 34.3 pg (25.0-34.0) H 05/30/22 04:08 MCHC 36.1 g/dL (32.0-36.0) H 05/30/22 04:08 RDW Std Deviation 43.3 fL (36.4-46.3) 05/30/22 04:08 RDW Coeff of Tree 12.4 % (11.5-14.5) 05/30/22 04:08 Plt Count 217 K/uL (130-400) 05/30/22 04:08 MPV 10.0 fL (9.4-12.4) 05/30/22 04:08 Immature Gran % (Auto) 0.8 % 05/30/22 04:08 Neut % (Auto) 60.8 % 05/30/22 04:08 Lymph % (Auto) 27.0 % 05/30/22 04:08 [place] % (Auto) 9.2 % 05/30/22 04:08 Eos % (Auto) 1.8 % 05/30/22 04:08 Baso % (Auto) 0.4 % 05/30/22 04:08 Neut # (Auto) 4.83 K/uL (1.4-6.5) 05/30/22 04:08 Lymph # (Auto) 2.14 K/uL (1.2-3.4) 05/30/22 04:08 [place] # (Auto) 0.73 K/uL (0.24-0.82) 05/30/22 04:08 Eos # (Auto) 0.14 K/uL (0-0.50) 05/30/22 04:08 Baso # (Auto) 0.03 K/uL (0-0.2) 05/30/22 04:08 Immature Gran # (Auto) 0.06 K/uL (0.00-0.02) H 05/30/22 04:08 PT 11.6 Seconds (9.0-12.0) 05/29/22 20:26 INR 1.1 (0.9-1.1) 05/29/22 20:26 APTT 101.5 Seconds (21.0-31.0) H* 05/29/22 20:26 PTT Ratio 3.7 05/29/22 20:26 Activ Coag Time Kaolin 203 SECONDS (94-140) H 05/29/22 19:29 Sodium 135 mmol/L (136-145) L 05/30/22 04:08 Potassium 3.6 mmol/L (3.5-5.1) 05/30/22 04:08 Chloride 103 mmol/L (98-107) 05/30/22 04:08 Carbon Dioxide 25 mmol/L (21-32) 05/30/22 04:08 Anion Gap 7 (3-11) 05/30/22 04:08 BUN 13 mg/dl (6-23) 05/30/22 04:08 Creatinine 0.92 mg/dl (0.6-1.4) 05/30/22 04:08 Est Cr Clr Drug Dosing 84.8 ml/min 05/30/22 04:08 Est GFR ( Amer) 110.4 ml/min 05/30/22 04:08 Est GFR (Non-Af Amer) 95.3 ml/min 05/30/22 04:08 BUN/Creatinine Ratio 14.1 (10-20) 05/30/22 04:08 Glucose 95 mg/dl (70-99(Fasting)) 05/30/22 04:08 POC Glucose 144 mg/dl (70-99) H 05/29/22 21:14 Calcium 8.6 mg/dl (8.5-10.1) 05/30/22 04:08 Total Bilirubin 0.6 mg/dl (0.2-1.0) 05/29/22 17:56 AST 26 U/L (13-39) 05/29/22 17:56 ALT 30 U/L (7-52) 05/29/22 17:56 Alkaline Phosphatase 39 U/L (34-104) 05/29/22 17:56 Troponin I High Sens 78097.7 pg/ml (0-20) H* D 05/30/22 04:08 Total Protein 6.8 gm/dl (6.0-8.3) 05/29/22 17:56 Albumin 4.3 gm/dl (3.4-5.0) 05/29/22 17:56 Globulin 2.5 gm/dl (2.5-4.0) 05/29/22 17:56 Albumin/Globulin Ratio 1.7 (0.9-2) 05/29/22 17:56 Triglycerides 83 mg/dl (0-150) 05/29/22 20:26 Cholesterol 204 mg/dl (0-200) H 05/29/22 20:26 LDL Cholesterol, Calc 145 mg/dl 05/29/22 20:26 VLDL Cholesterol, Calc 17 mg/dl (0-30) 05/29/22 20:26 HDL Cholesterol 42 mg/dl 05/29/22 20:26 Cholesterol/HDL Ratio 4.9 (0-5) 05/29/22 20:26 Lipase 13 U/L (11-82) 05/29/22 17:56 Nasal Screen MRSA (PCR) Negative (Negative) 05/29/22 Unknown SARS-CoV-2, RNA, NAAT NEGATIVE (NEGATIVE) 05/29/22 Unknown ECG Additional Comments: ECG Additional Comments: Poor data quality, interpretation may be adversely affected Normal sinus rhythm Inferior infarct , possibly acute ACUTE [place] / STEMI Consider right ventricular involvement in acute inferior infarct Abnormal ECG No previous ECGs available Supervising Physician Co-Signing Physician Notes Patient seen and examined, chart reviewed, case discussed with HAN Fernandez and I agree with the assessment and plan as above. Original note placed by HAN Fernandez in Consult format - content was moved to H&P Patient with inferior wall STEMI s/p JAZMYN x 2 to RCA. Presently doing well in the MICU. Catheterization revealed severe multivessel CAD. Denies chest pain or palpitations. Troponin continues to climb, most recent [id number]. On exam he is afebrile, HD stable, NAD MMM, Neck supple, no JVD +S1/S2, regular, non ectopy Lungs CTA Abd soft, NT/ND Ext - radial occlusion device present on right Neuro -non focal exam Labs and images reviewed Assessment/plan -trend troponin -Continue DAPT with ASA and Brillinta for 1-2 years unless otherwise contraindicated -Continue Lisinopril -Statin and beta-isabel -Echo ordered -Smoking cessation counseling -Remainder as above PG Care Time/CCT Total # of Minutes Spent Total Time Spent with Patient: Total time spent is greater than 50% in coordination of care (as documented) at patient's floor/unit and/or counseling patient: Coding Level of Care Code 90267 INT INP/OBS CARE 3/75MIN Diagnoses STEMI (ST elevation myocardial infarction) I21.3 Involved coronary artery: unspecified coronary artery Hypertension I10 Hyponatremia E87.1 Smoker F17.200 (1) STEMI (ST elevation myocardial infarction) Involved coronary artery: unspecified coronary artery Qualified Code(s): I21.3 - ST elevation (STEMI) myocardial infarction of unspecified site
--- NOTE | 2022-05-30 07:35 | Hospitalist Progress Note ---
Date of Service May 30, 2022 Assessment & Plan (1) STEMI (ST elevation myocardial infarction): Plan: acute issue significant risk to patient -Patient is S/P 2 JAZMYN to the RCA, also was noted to have significant atherosclerotic disease in the left coronary system. wiill need future decision about revascularization vs stenting Guideline directed medical management as ordered by cardiology including HARDY, meta isabel, high intensity statin, aspirin, and Brilinta - -counceling for smoking cessation, patient declined nicotine patch and gum at this time (2) Hypertension: Plan: -chronic Stable -Continue HARDY and started metoprolol -Hold HCTZ for now with his hyponatremia and recent cath, monitor am electrolytes and renal function (3) Hyponatremia: Plan: -acute self limited, sodium noted to be 131 on initial labs obtained in the ED - (4) Smoker: Plan: -Continue to stress smoking cessation -Patient declined nicotine patch at the time of the consultation Admission and Anticipated Discharge Date Admission Date: May 29, 2022 Subjective pt was seen and is in no distress he has no further chest pain and has not had issues with wrist pain Physical Exam Physical Exam: Cardiac exam is regular lungs are clear right wrist has good distal capillary refills and strength and sensation Results & Data Results & Data ([facility]) Vital Signs (Past 12 Hours) Vital Signs Temp Pulse Resp BP Pulse Ox 05/30/22 06:00 58 L 17 94 05/30/22 06:00 98/65 L 05/30/22 05:30 52 L 17 05/30/22 05:30 121/71 05/30/22 05:15 53 L 20 95 05/30/22 05:15 121/71 05/30/22 06:00 98.4 F 05/30/22 05:00 49 L 18 05/30/22 04:45 54 L 20 96 05/30/22 04:45 117/68 05/30/22 04:31 55 L 17 97 05/30/22 04:31 113/63 05/30/22 04:30 54 L 18 05/30/22 04:15 60 19 97 05/30/22 04:15 124/74 05/30/22 04:00 56 L 17 95 05/30/22 04:00 103/62 05/30/22 03:45 59 L 15 96 05/30/22 03:45 135/72 05/30/22 03:30 55 L 18 97 05/30/22 03:15 66 14 97 05/30/22 03:00 70 19 96 05/30/22 03:00 114/63 05/30/22 02:45 64 21 05/30/22 02:45 119/74 05/30/22 02:30 59 L 16 97 05/30/22 02:30 130/78 05/30/22 02:15 54 L 13 93 05/30/22 02:15 118/66 05/30/22 02:00 56 L 16 95 05/30/22 02:00 138/68 05/30/22 01:45 54 L 17 98 05/30/22 01:45 108/89 05/30/22 01:30 55 L 18 95 05/30/22 01:30 117/70 05/30/22 01:15 55 L 18 97 05/30/22 01:00 68 18 05/30/22 01:00 121/71 05/30/22 00:45 57 L 21 96 05/30/22 00:45 118/70 05/30/22 05:00 98.1 F 05/30/22 04:00 98.1 F 05/30/22 03:00 98.2 F 05/30/22 02:00 98.1 F 05/30/22 01:24 98.2 F 05/30/22 01:00 98.2 F 05/30/22 00:30 61 19 96 05/30/22 00:30 114/64 05/30/22 00:15 73 22 97 05/30/22 00:15 120/66 05/30/22 00:00 61 20 97 05/30/22 00:00 116/70 05/29/22 23:45 64 20 96 05/29/22 23:45 119/62 05/29/22 23:30 61 21 93 05/29/22 23:15 67 20 97 05/29/22 23:00 62 21 97 05/29/22 23:00 119/73 05/29/22 22:45 65 20 97 05/29/22 22:45 124/80 05/29/22 22:30 63 21 96 05/29/22 22:30 136/81 05/29/22 22:15 70 18 97 05/29/22 22:15 111/79 05/29/22 22:00 60 14 100 05/29/22 22:00 113/92 05/29/22 21:45 64 21 100 05/30/22 00:24 97.9 F 05/30/22 00:00 98.2 F 05/30/22 00:00 61 05/29/22 20:20 62 05/29/22 23:00 98.2 F 05/29/22 22:00 98.2 F 05/29/22 23:24 98.2 F 05/29/22 22:24 98.2 F 05/29/22 21:30 63 19 98 05/29/22 21:30 137/85 05/29/22 21:15 68 19 97 05/29/22 21:15 125/84 05/29/22 21:00 76 27 H 99 05/29/22 21:00 124/82 05/29/22 20:46 131/67 05/29/22 20:46 67 23 95 05/29/22 20:45 68 25 H 97 05/29/22 20:30 70 22 99 05/29/22 20:16 78 17 98 05/29/22 20:16 121/70 05/29/22 20:15 76 20 95 05/29/22 20:00 71 24 97 05/29/22 21:00 97.9 F 05/29/22 21:24 97.7 F 05/29/22 20:54 97.5 F L Diagnostic Findings Reviewed CBC stable hemoglobin Reviewed chemistry panel stable renal function Review troponin escalated from 28-32,752 then declined to 23, 804 Reviewed hemoglobin A1c at 5.7 PG Care Time/CCT Total # of Minutes Spent Total Time Spent with Patient: Total time spent is greater than 50% in coordination of care (as documented) at patient's floor/unit and/or counseling patient: Coding Level of Care Code 19971 SUB INP/OBS CARE 3/50MIN Diagnoses STEMI (ST elevation myocardial infarction) I21.3 Involved coronary artery: unspecified coronary artery Hypertension I10 Hyponatremia E87.1 Smoker F17.200 (1) STEMI (ST elevation myocardial infarction) Involved coronary artery: unspecified coronary artery Qualified Code(s): I21.3 - ST elevation (STEMI) myocardial infarction of unspecified site
[2022-05-30] MEDS: ICU Protocol for HYPERglycemia SCH ×4 (08:12→21:43)
[2022-05-30] MEDS: METOPROLOL TARTRATE 25 MG TAB PO SCH ×2 (08:37→21:31)
[2022-05-30] MEDS: lisinopril 10 MG TAB PO SCH (08:37)
[2022-05-30] MEDS: ASPIRIN 81 MG ECTAB PO SCH (08:37)
[2022-05-30] MEDS: TICAGRELOR 90 MG TAB PO SCH ×2 (08:37→21:31)
[2022-05-30] MEDS: ATORVASTATIN 40 MG TAB PO SCH (08:37)
[2022-05-30] MEDS ORDERED: POTASSIUM CHLORIDE CRTAB 20 MEQ TABCR PO STA ×2 (09:32→09:33)
[2022-05-30 09:35] LABS: Estimated Average Glucose 117 mg/dl; Hemoglobin A1C 5.7 % (4.5-5.6)
[2022-05-30] MEDS: SODIUM CHLORIDE 0.9% 1000ML 1,000 ML IV SCH (09:41)
--- NOTE | 2022-05-30 11:42 | Cardiology Consultation ---
Date of Consultation May 30, 2022 History of Present Illness Attending Physician: Bassam Nichole MD Allergies Allergy/AdvReac Type Severity Reaction Status Date / Time No Known Allergies Allergy Unverified 05/29/22 18:04 Home Medications Medication Instructions Recorded Confirmed Type lisinopril 10 1 tab PO DAILY 05/29/22 05/29/22 History mg-hydrochlorothiazide 12.5 mg tablet Patient History Medical History Hypertension Seasonal allergies Surgical History No significant past surgical history Family History Mother Diabetes Dyslipidemia Heart disease Hypertension Aunt Heart disease Hypertension Social History Smoking Status: Current every day smoker Tobacco Type: Cigarettes Cigarettes Per Day: 10; Second Hand Exposure: Yes; Do You Dip or Chew Tobacco: No; Tobacco Cessation Education Requested by Patient: Yes Hx Alcohol Use: Yes Alcohol type: beer Hx Substance Use: No Preferred Language: Malay Communication Ability: Effective Manager Landscape Required: No Beliefs That Will Affect Care: None marital status: Current Living Situation: Alone current occupational status: employed Other Information That Helps Us Care for You: No Feels Safe at Home: Yes Safety Concerns: Feels Safe At This Time Assistive Devices: None Results & Data ([facility]) Vital Signs (Past 12 Hours) Vital Signs Temp Pulse Resp BP Pulse Ox O2 Del Method 05/30/22 08:00 56 L 05/30/22 08:00 68 21 134/95 97 05/30/22 07:01 56 L 19 115/73 97 Room Air 05/30/22 07:00 36.4 C L 05/30/22 07:30 36.4 C L 05/30/22 06:00 58 L 17 94 05/30/22 06:00 98/65 L 05/30/22 05:30 52 L 17 05/30/22 05:30 121/71 05/30/22 05:15 53 L 20 95 05/30/22 05:15 121/71 05/30/22 06:00 36.9 C 05/30/22 05:00 49 L 18 05/30/22 04:45 54 L 20 96 05/30/22 04:45 117/68 05/30/22 04:31 55 L 17 97 05/30/22 04:31 113/63 05/30/22 04:30 54 L 18 05/30/22 04:15 60 19 97 05/30/22 04:15 124/74 05/30/22 04:00 56 L 17 95 05/30/22 04:00 103/62 05/30/22 03:45 59 L 15 96 05/30/22 03:45 135/72 05/30/22 03:30 55 L 18 97 05/30/22 03:15 66 14 97 05/30/22 03:00 70 19 96 05/30/22 03:00 114/63 05/30/22 02:45 64 21 05/30/22 02:45 119/74 05/30/22 02:30 59 L 16 97 05/30/22 02:30 130/78 05/30/22 02:15 54 L 13 93 05/30/22 02:15 118/66 05/30/22 02:00 56 L 16 95 05/30/22 02:00 138/68 05/30/22 01:45 54 L 17 98 05/30/22 01:45 108/89 05/30/22 01:30 55 L 18 95 05/30/22 01:30 117/70 05/30/22 01:15 55 L 18 97 05/30/22 01:00 68 18 05/30/22 01:00 121/71 05/30/22 00:45 57 L 21 96 05/30/22 00:45 118/70 05/30/22 05:00 36.7 C 05/30/22 04:00 36.7 C 05/30/22 03:00 36.8 C 05/30/22 02:00 36.7 C 05/30/22 01:24 36.8 C 05/30/22 01:00 36.8 C 05/30/22 00:30 61 19 96 05/30/22 00:30 114/64 05/30/22 00:15 73 22 97 05/30/22 00:15 120/66 05/30/22 00:00 61 20 97 05/30/22 00:00 116/70 05/29/22 23:45 64 20 96 05/29/22 23:45 119/62 05/30/22 00:24 36.6 C 05/30/22 00:00 36.8 C 05/30/22 00:00 61 PG Care Time/CCT Total # of Minutes Spent Total Time Spent with Patient: Total time spent is greater than 50% in coordination of care (as documented) at patient's floor/unit and/or counseling patient: Coding
--- NOTE | 2022-05-30 11:48 | Cardiology Progress Note ---
Date of Service May 30, 2022 Assessment & Plan (1) STEMI (ST elevation myocardial infarction): Plan: Successful PCI of the RCA with implantation of 2 overlapping drug-eluting stents. Significant residual left coronary system disease to be addressed later. We will optimize medical management including guideline directed medical therapy, antianginal regimen, and continue dual antiplatelet therapy. Fairly robust elevation in troponin. Echo demonstrating normal EF and only mild RCA territory wall motion abnormalities. Mild to moderate MR and mild TR. Heart rate and blood pressure are at target. Continue metoprolol tartrate 25 mg p.o. twice daily and lisinopril. We will consider reduce lisinopril to 5 mg daily if his blood pressure remains low with activity. He will continue statin. Continue dual antiplatelet therapy with aspirin 81 mg daily and Brilinta 90 mg p.o. twice daily. Would like to get at least 30 days of Brilinta preferably 1 year. If it becomes unaffordable and then we could change to Plavix as an outpatient. (2) Hypertension: Plan: Blood pressure is low normal. For now we will continue his current medical regimen. May need to decrease lisinopril to 5 mg. (3) Atherogenic dyslipidemia: Plan: High risk. High intensity statin therapy with target LDL reduction of greater than or equal to 50% of untreated baseline LDL. His LDL is 145, making his target LDL 72. Continue a atorvastatin 40 mg and reassess lipids in 3 months. Plan from a CV standpoint he will be appropriate for DC tomorrow am assuming no complications arise within next 24 hrs. Should followup with me in cardiology office in 1-2 weeks. Admission and Anticipated Discharge Date Admission Date: May 29, 2022 Subjective Patient with inferior ST elevation [place] status post PCI of the RCA with 2 overlapped drug-eluting stents. Severe residual CAD as described in the cath report. Patient reports that he is feeling well. He is tired but feels no chest pain or shortness of breath. He has ambulated about the room without problems. No pain at the radial artery access site. Tolerating his medications well at this time. He states that he is interested in tobacco cessation. He voices no other complaints or concerns at this time. Review of Systems Review of Systems: Negative except as per HPI Physical Exam Constitutional: WD/WN, vitals as above Eyes: Sclera are anicteric, extraocular muscles intact ENMT: Oral mucosa is pink, moist, and intact Neck: No JVD Respiratory: Clear to auscultation bilaterally. No wheezing, rhonchi, or rales Cardiovascular: Regular rate and rhythm. S4 gallop. No rubs or murmurs appreciated. Sinus rhythm on the monitor. Musculoskeletal: no cyanosis or clubbing, extremities motor strength 5/5 Radial access site is clean, dry, intact. Good distal perfusion. Neurologic: Cognition intact. Speech fluent. No focal deficits. No tremor. Psychiatric: A+Ox3, euthymic affect Results & Data ([facility]) Vital Signs (Past 12 Hours) Vital Signs Temp Pulse Resp BP Pulse Ox O2 Del Method 05/30/22 08:00 56 L 05/30/22 08:00 68 21 134/95 97 05/30/22 07:01 56 L 19 115/73 97 Room Air 05/30/22 07:00 36.4 C L 05/30/22 07:30 36.4 C L 05/30/22 06:00 58 L 17 94 05/30/22 06:00 98/65 L 05/30/22 05:30 52 L 17 05/30/22 05:30 121/71 05/30/22 05:15 53 L 20 95 05/30/22 05:15 121/71 05/30/22 06:00 36.9 C 05/30/22 05:00 49 L 18 05/30/22 04:45 54 L 20 96 05/30/22 04:45 117/68 05/30/22 04:31 55 L 17 97 05/30/22 04:31 113/63 05/30/22 04:30 54 L 18 05/30/22 04:15 60 19 97 05/30/22 04:15 124/74 05/30/22 04:00 56 L 17 95 05/30/22 04:00 103/62 05/30/22 03:45 59 L 15 96 05/30/22 03:45 135/72 05/30/22 03:30 55 L 18 97 05/30/22 03:15 66 14 97 05/30/22 03:00 70 19 96 05/30/22 03:00 114/63 05/30/22 02:45 64 21 05/30/22 02:45 119/74 05/30/22 02:30 59 L 16 97 05/30/22 02:30 130/78 05/30/22 02:15 54 L 13 93 05/30/22 02:15 118/66 05/30/22 02:00 56 L 16 95 05/30/22 02:00 138/68 05/30/22 01:45 54 L 17 98 05/30/22 01:45 108/89 05/30/22 01:30 55 L 18 95 05/30/22 01:30 117/70 05/30/22 01:15 55 L 18 97 05/30/22 01:00 68 18 05/30/22 01:00 121/71 05/30/22 00:45 57 L 21 96 05/30/22 00:45 118/70 05/30/22 05:00 36.7 C 05/30/22 04:00 36.7 C 05/30/22 03:00 36.8 C 05/30/22 02:00 36.7 C 05/30/22 01:24 36.8 C 05/30/22 01:00 36.8 C 05/30/22 00:30 61 19 96 05/30/22 00:30 114/64 05/30/22 00:15 73 22 97 05/30/22 00:15 120/66 05/30/22 00:00 61 20 97 05/30/22 00:00 116/70 05/29/22 23:45 64 20 96 05/29/22 23:45 119/62 05/30/22 00:24 36.6 C 05/30/22 00:00 36.8 C 05/30/22 00:00 61 PG Care Time/CCT Total # of Minutes Spent Total Time Spent with Patient: Total time spent is greater than 50% in coordination of care (as documented) at patient's floor/unit and/or counseling patient: Coding [place] [address] SUB INP/OBS CARE 2/35MIN Patient Type Established Diagnoses STEMI (ST elevation myocardial infarction) I21.3 Involved coronary artery: unspecified coronary artery Hypertension I10 Atherogenic dyslipidemia E78.5 (1) STEMI (ST elevation myocardial infarction) Involved coronary artery: unspecified coronary artery Qualified Code(s): I21.3 - ST elevation (STEMI) myocardial infarction of unspecified site
--- NOTE | 2022-05-30 12:37 | XCELERA ---
[id number]
--- NOTE | 2022-05-30 13:52 | Critical Care Progress Note ---
Date of Service May 30, 2022 Assessment & Plan (1) STEMI (ST elevation myocardial infarction): Plan: Status post PCI of the RCA with 2 overlapping JAZMYN. Significant left coronary system disease to be addressed later by cardiology. Continue optimizing guideline based medical therapy per cardiology. Echo results reviewed with evidence of a preserved EF, mild to moderate regurgitation. Abnormal wall motion consistent with RCA territory CT. (2) S/P drug eluting coronary stent placement: Plan: Continue dual antiplatelet therapy. Continue high-dose statin. (3) Smoker: Plan: Strongly encouraged to quit smoking. Patient notes that he is ready to quit smoking at this time. He notes that the biggest obstacles include his golfing friends who some of which are smokers. Plan Will defer dispo to cardiology. Admission and Anticipated Discharge Date Admission Date: May 29, 2022 Subjective Patient seen and examined. Denies any shortness of breath or chest pain. Eager to go home. Review of Systems Review of Systems: All systems reviewed & are unremarkable except as noted in HPI & below Physical Exam Constitutional: WD/WN, vitals as above Respiratory: normal respiratory effort, lungs clear to auscultation Cardiovascular: RRR, no murmur, no edema Neurologic: PERRL, EOMI, accommodation nl, no face palsy, no dysarthria Psychiatric: A+Ox3, euthymic affect Results & Data Results & Data ([facility]) Vital Signs (Past 12 Hours) Vital Signs Temp Pulse Resp BP Pulse Ox O2 Del Method 05/30/22 11:00 58 L 19 95/73 L 97 05/30/22 11:45 36.5 C 05/30/22 08:00 56 L 05/30/22 08:00 68 21 134/95 97 05/30/22 07:01 56 L 19 115/73 97 Room Air 05/30/22 07:00 36.4 C L 05/30/22 07:30 36.4 C L 05/30/22 06:00 58 L 17 94 05/30/22 06:00 98/65 L 05/30/22 05:30 52 L 17 05/30/22 05:30 121/71 05/30/22 05:15 53 L 20 95 05/30/22 05:15 121/71 05/30/22 06:00 36.9 C 05/30/22 05:00 49 L 18 05/30/22 04:45 54 L 20 96 05/30/22 04:45 117/68 05/30/22 04:31 55 L 17 97 05/30/22 04:31 113/63 05/30/22 04:30 54 L 18 05/30/22 04:15 60 19 97 05/30/22 04:15 124/74 05/30/22 04:00 56 L 17 95 05/30/22 04:00 103/62 05/30/22 03:45 59 L 15 96 05/30/22 03:45 135/72 05/30/22 03:30 55 L 18 97 05/30/22 03:15 66 14 97 05/30/22 03:00 70 19 96 05/30/22 03:00 114/63 05/30/22 02:45 64 21 05/30/22 02:45 119/74 05/30/22 02:30 59 L 16 97 05/30/22 02:30 130/78 05/30/22 02:15 54 L 13 93 05/30/22 02:15 118/66 05/30/22 02:00 56 L 16 95 05/30/22 02:00 138/68 05/30/22 05:00 36.7 C 05/30/22 04:00 36.7 C 05/30/22 03:00 36.8 C 05/30/22 02:00 36.7 C Coding Level of Care Code 29161 SUB INP/OBS CARE 2/35MIN Diagnoses STEMI (ST elevation myocardial infarction) I21.3 Involved coronary artery: unspecified coronary artery S/P drug eluting coronary stent placement Z95.5 Smoker F17.200 (1) STEMI (ST elevation myocardial infarction) Involved coronary artery: unspecified coronary artery Qualified Code(s): I21.3 - ST elevation (STEMI) myocardial infarction of unspecified site
--- NOTE | 2022-05-30 14:27 | Electrocardiogram Report ---
Test Reason : Blood Pressure : / mmHG Vent. Rate : 066 BPM Atrial Rate : 066 BPM P-R Int : 170 ms QRS Dur : 104 ms QT Int : 380 ms P-R-T Axes : 038 -18 038 degrees QTc Int : 398 ms Normal sinus rhythm Normal ECG When compared with ECG of 29-MAY-2022 17:51, (unconfirmed) ST no longer elevated in Inferior leads ST no longer depressed in Lateral leads T wave inversion no longer evident in Lateral leads Confirmed by Benja Oquendo ([id number]) on 05/30/2022 2:26:52 PM Referred By: REFERRED SELF Confirmed By:Geovani Oquendo
--- NOTE | 2022-05-30 14:27 | Electrocardiogram Report ---
Test Reason : Blood Pressure : / mmHG Vent. Rate : 068 BPM Atrial Rate : 068 BPM P-R Int : 178 ms QRS Dur : 106 ms QT Int : 366 ms P-R-T Axes : 051 003 096 degrees QTc Int : 389 ms Poor data quality, interpretation may be adversely affected Normal sinus rhythm Inferior infarct , possibly acute ACUTE [place] / STEMI Consider right ventricular involvement in acute inferior infarct Abnormal ECG No previous ECGs available Confirmed by Benja Oquendo ([id number]) on 05/30/2022 2:27:03 PM Referred By: REFERRED SELF Confirmed By:Geovani Oquendo
--- NOTE | 2022-05-30 14:31 | Electrocardiogram Report ---
Test Reason : Blood Pressure : / mmHG Vent. Rate : 055 BPM Atrial Rate : 055 BPM P-R Int : 168 ms QRS Dur : 092 ms QT Int : 430 ms P-R-T Axes : 062 -05 -07 degrees QTc Int : 411 ms Sinus bradycardia Abnormal ECG When compared with ECG of 29-MAY-2022 19:54, (unconfirmed) Inverted T waves have replaced nonspecific T wave abnormality in Inferior leads Confirmed by Benja Oquendo ([id number]) on 05/30/2022 2:31:19 PM Referred By: REFERRED SELF Confirmed By:Geovani Oquendo
[2022-05-31] MEDS: ICU Protocol for HYPERglycemia SCH (07:37)
[2022-05-31] MEDS: lisinopril 10 MG TAB PO SCH (08:28)
[2022-05-31] MEDS: TICAGRELOR 90 MG TAB PO SCH (08:28)
[2022-05-31] MEDS: METOPROLOL TARTRATE 25 MG TAB PO SCH (08:28)
[2022-05-31] MEDS: ATORVASTATIN 40 MG TAB PO SCH (08:29)
[2022-05-31] MEDS: ASPIRIN 81 MG ECTAB PO SCH (08:29)
--- NOTE | 2022-05-31 17:20 | Discharge Summary ---
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 Per the procedural documentation the patient was found to be having STEMI. He received 2 JAZMYN to RCA and transitioned to ICU for following of symptoms and hemodynamics. At the time of the exam the patient was resting comfortably in bed in no acute distress after his procedure. He states that he is still smoking approximately 1/2-3/4 PPD and drinks beer socially. He states that his PCP follows yearly blood work to monitor for DM and high cholesterol and his labs have been stable. This morning he was doing a jump rope workout, he stated to feel "off" shortly after completing the workout. When questioned further he described a heaviness in the substernal region of his chest. He also noted BL upper extremity numbness/tingling. He clarified that the pain did not radiate from his chest to his BL UE's. He did take his Lisinopril/HCTZ this am. He states that he feels much better after the procedure, he does have some anxiety due to having to rest for a few days as he has been very busy with work. He denies current fever, chills, chest pain, SOB, abdominal pain, nausea, vomiting, diarrhea, dysuria, hematuria, and recent trauma. Since arriving to the ICU post-cath the patient has been afebrile, hemod ynamically stable, and stable on RA. His initial labs were remarkable for A CBC WNL, stable Cr at 1.1, sodium of 131, otherwise stable electrolytes, glucose of 141, initial high sensitivity trop of 28, and covid negative. Please refer to Dr. Esteves's attestation for any changes to the treatment plan Allergies Principal Diagnosis Stemi RCA stent residual CAD tobacco abuse with cessation councelling Discharge Exam The patient appeared stable Vital signs as documented. Lungs are clear to auscultation and appear unlabored Cardiac exam, Rhythm is regular.. No murmurs, rubs or gallops. Abdominal exam reveals normal bowel sounds, soft non tender, no masses Extremities are nonedematous and both pedal pulses are normal. Neurologic exam is alert and oriented, no focal loss of strength or sensation Skin is without bruises or rashes Psychologically is without concerns for anxiety or depression. Discharge Data Allergies Allergy/AdvReac Type Severity Reaction Status Date / Time No Known Allergies Allergy Unverified 05/29/22 18:04 Consultations 05/29/22 17:53 Consult Cardiac Catheterization Stat 05/29/22 19:39 Consult Internal Medicine Routine 05/29/22 19:46 Consult Ordnance Technician Routine Procedures Performed Operation Date: 05/29/22 06:30 Actual Procedures p Aspiration/PCI w/JAZMYN for Stemi - Ady Foy MD, PhD s Cath, Coronaries ONLY (no LV) - Ady Foy MD, PhD s Cineradiography w/Routine Exam - Ady Foy MD, PhD Ordered Studies 05/29/22 17:53 CL Cath Imgs for PACS use only Stat Hospital Course (1) STEMI (ST elevation myocardial infarction): acute issue significant risk to patient -Patient is S/P 2 JAZMYN to the RCA, also was noted to have significant atherosclerotic disease in the left coronary system. will need future decision about revascularization vs stenting Guideline directed medical management as ordered by cardiology including HARDY, beta isabel, high intensity statin, aspirin, and Brilinta - -counseling for smoking cessation, patient declined nicotine patch and gum at this time (2) Hypertension: -chronic Stable -Continue HARDY and started metoprolol d/c HCTZ will be on lisinopril and metoprolol (3) Hyponatremia: -acute self limited - (4) Smoker: -Continue to stress smoking cessation -Patient declined nicotine patch at the time of the consultation Total Time Total Time Spent Total Time Spent (In Minutes): It required greater than 30 minutes to prepare this patient for discharge Discharge Plan Discharge Items Patient Disposition: Home - Self-Care Reason For Visit: STEMI Discharge Diagnosis: Stemi right coronary stent placement x2 Activity: Per Instructions section Activity Comment: no intentional exercisse until released by cardiology Non-emergency contact: Primary Care Provider and Photography Editor Call non-emergency contact if: your symptoms worsen Follow-up/Referrals: PCP,NO [Primary Care Provider] - Diet: Heart Healthy Addtl Attending Provider Instructions: ACTIVITY RECOMMENDATIONS: Excess manipulation of the wrist should be avoided for the next 24-48 hours. * No lifting over 2 pounds (approximately a 1/2 gallon of milk) with the utilized arm for 24 hours. * No strenuous activity such as bowling or tennis for 3 days. * Keep the site of the procedure covered with a bandage for 24 hours. *You may shower the day after the procedure. Do not take a tub bath or submerge the puncture site in water for the next 3 days. *Do not operate any motorized equipment for 3 days. SPECIAL CARE INSTRUCTIONS: The site may be slightly bruised and sore following your procedure. Should any of the following occur, contact the Dr. who performed your procedure. 1. Redness/inflammation, swelling, chills, or fever, or colored drainage at procedure site within 3-7 days after your procedure. 2. Coldness, discoloration, ongoing numbness, severe pain, or swelling. Expect mild tingling of hand and tenderness at the puncture site for up to three days. If this persists beyond three days, or other symptoms develop, notify the Dr. who performed your procedure. BLEEDING: If the procedure site on your wrist begins to bleed, do not panic 1. Place 1 or 2 fingers firmly just slightly above the insertion site to stop the bleeding. You may be able to feel your pulse as you hold pressure. 2. Lift your finger after 5 minutes to see if the bleeding has stopped. 3. Once the bleeding has stopped, gently wipe the wrist area clean with a wilson ge. * If the bleeding from your wrist does not stop after 10 minutes, or if there is a large amount of bleeding or spurting, call 911 (do not drive yourself to the hospital). SKIN IRRITATION: * You may experience some redness and/or swelling in the area where radiation was administered. If any skin irritation occurs, please contact your family physician. FOLLOW UP VISIT: Keep any scheduled doctor appointments. Pending Studies at Discharge: No Stand-Alone Forms: My [facility] Sunglass, Smoking Cessation Medications and DC Order Prescriptions: New atorvastatin 40 mg Tablet 40 mg PO QAM Qty: 30 3RF aspirin 81 mg Tablet,Delayed Release (Dr/Ec) 81 mg PO QAM Qty: 30 0RF lisinopril 10 mg Tablet 10 mg PO QAM 30 Days Qty: 30 3RF nitroglycerin [Nitrostat] 0.4 mg Tablet, Sublingual 0.4 mg sublingual UD PRN (Reason: chest pain) Qty: 1 4RF metoprolol tartrate 25 mg Tablet 25 mg PO BID Qty: 60 3RF Brilinta 90 mg Tablet 90 mg PO BID Qty: 60 4RF Discontinued lisinopril-hydrochlorothiazide 10-12.5 mg tablet 1 tab PO DAILY Discharge Orders: Discharge Order (Routine); Ordered 05/31/22 Ordered By: Bassam Nichole Admission Data Admit Date/Time: 05/29/22 19:58 Attending Provider: Bassam Nichole Admit Provider: Ady Foy Primary Care Provider: PCP,NO Other Providers: Ady Foy ; Bassam Nichole ; Mauricio Sanchez ; Sim Olvera ; Jason Williamson ; Bernardo Brannon ; Eric Thomas ; Misael Alcaraz ; Dwayne Bill ; Shin Fuchs ; Dixie Padron Other Interventions: Discharge Summary Assessment (RN) Last Done: 05/31/22 08:40 Coding Level of Care Code HOSP INP/OBS DISCH >30 MIN Diagnoses STEMI (ST elevation myocardial infarction) I21.3 Involved coronary artery: unspecified coronary artery Hypertension I10 Hyponatremia E87.1 Smoker F17.200
== END 2022-05-31 08:50 | disposition home or self-care (01) | DRG 247 ==
LOC: ED 17:49 → CC 18:10 → 1E 19:58
PROC: CLB.CCO (2022-05-29 06:30)